=== PATIENT | female | born 1980 ===

== ENCOUNTER → 2020-04-23 12:41 | Outpatient (BNVA) | payer MEDICARE, MEDICAID, SELFPAY | PROVIDERS: PCP Pediatrics; Referring Provider Pediatrics; Visit Provider Physician Assistant | DX: E66.3 Overweight (principal); Z68.26 Body mass index [BMI] 26.0-26.9, adult; K28.9 Gastrojejunal ulcer, unspecified as acute or chronic, without hemorrhage or perforation; Z79.899 Other long term (current) drug therapy; Z98.84 Bariatric surgery status | CPT/HCPCS: 99213 ==

== ENCOUNTER → 2020-06-24 08:14 | Outpatient (BNVA) | payer MEDICARE, MEDICAID, SELFPAY | PROVIDERS: PCP Pediatrics; Referring Provider Pediatrics; Visit Provider Physician Assistant | DX: K91.2 Postsurgical malabsorption, not elsewhere classified (principal); Z90.3 Acquired absence of stomach [part of]; Z98.84 Bariatric surgery status | CPT/HCPCS: Q3014 ==

== ENCOUNTER → 2020-06-30 08:23 | Outpatient (BNVA) | payer MEDICARE, MEDICAID, SELFPAY | PROVIDERS: PCP Pediatrics; Visit Provider Dietitian, Registered | DX: Z76.89 Persons encountering health services in other specified circumstances (principal) ==

== ENCOUNTER → 2020-08-10 08:24 | Outpatient (BNVA) | payer MEDICARE, MEDICAID, SELFPAY | PROVIDERS: PCP Pediatrics; Visit Provider Dietitian, Registered ==

== ENCOUNTER → 2020-09-18 08:10 | Outpatient (BNVA) | payer MEDICARE, MEDICAID, SELFPAY | PROVIDERS: PCP Pediatrics; Visit Provider Physician Assistant | DX: Z71.3 Dietary counseling and surveillance (principal); Z98.84 Bariatric surgery status | CPT/HCPCS: Q3014 ==

== ENCOUNTER → 2020-10-07 08:16 | Outpatient (BNVA) | payer MEDICARE, MEDICAID, SELFPAY | PROVIDERS: PCP Pediatrics; Visit Provider Physician Assistant ==

== ENCOUNTER → 2020-10-08 13:02 | Outpatient (BNVA) | payer MEDICARE, MEDICAID, SELFPAY | PROVIDERS: PCP Pediatrics; Visit Provider Physician Assistant | DX: K59.00 Constipation, unspecified (principal); L57.1 Actinic reticuloid; Z98.84 Bariatric surgery status | CPT/HCPCS: 99212 ==

== ENCOUNTER → 2020-10-15 08:15 | Outpatient (BNVA) | payer MEDICARE, MEDICAID, SELFPAY | PROVIDERS: Visit Provider Physician Assistant | DX: M79.3 Panniculitis, unspecified (principal); K59.00 Constipation, unspecified; Z98.84 Bariatric surgery status | CPT/HCPCS: Q3014 ==

== ENCOUNTER → 2020-10-26 08:13 | Outpatient (BNVA) | payer MEDICARE, MEDICAID, SELFPAY | PROVIDERS: Visit Provider Surgery | DX: K91.2 Postsurgical malabsorption, not elsewhere classified (principal); Z90.3 Acquired absence of stomach [part of]; M79.3 Panniculitis, unspecified; Z98.84 Bariatric surgery status; I10 Essential (primary) hypertension | CPT/HCPCS: Q3014 ==

== ENCOUNTER 2020-11-03 05:54 | Inpatient (IN) | payer MEDICARE, MEDICAID, SELFPAY ==
[2020-10-27 08:05] LABS: MANUAL DIFF FLAG NO
[2020-10-27 08:13] LABS: Basophils Percent Auto 0.5 % (0-2); Eosinophils Absolute Auto 0.5 X10*3/uL (0.0-0.4); Eosinophils Percent Auto 6.5 % (0-4); Hemoglobin 11.9 g/dl (12.0-16.0); Imm Gran Abs Auto 0.01 X10*3/uL (0.00-0.03); Imm Gran Pct Auto 0.1 % (0.0-0.4); Lymphocytes Absolute Auto 1.9 X10*3/uL (1.2-4.9); Lymphocytes Percent Auto 25.2 % (20-40); Mean Corpuscular HGB Conc 32.2 g/dl (31.0-35.0); Mean Corpuscular Hemoglobin 27.2 pg (27.0-33.0); Mean Corpuscular Volume 84.5 fL (80-98); Mean Platelet Volume 9.5 fL (9.4-12.3); Monocytes Absolute Auto 0.5 X10*3/uL (0.1-1.2); Monocytes Percent Auto 7.2 % (2-11); Neutrophils Absolute Auto 4.5 X10*3/uL (2.0-8.3); Neutrophils Percent Auto 60.5 % (45-73); Platelet Count 332 X10*3/uL (160-400); Red Blood Count 4.38 X10*6/uL (4.20-5.50); White Blood Count 7.4 X10*3/uL (4.8-10.8)
[2020-10-27 08:15] LABS: Prothrombin Time 12.3 SEC (10.8-13.0)
[2020-10-27 08:17] LABS: Partial Thromboplastin Time 36.2 SEC (24.1-38.0)
[2020-10-27 08:20] LABS: Estimated Average Glucose 100 mg/dL; Hemoglobin A1c % 5.1 %
[2020-10-27 08:25] LABS: Alanine Aminotransferase 13 U/L (0-31); Albumin Level 4.3 g/dL (3.5-5.0); Alkaline Phosphatase 73 U/L (39-117); Anion Gap 13 (12-20); Aspartate Amino Transferase 17 U/L (5-31); Bilirubin Total 0.4 mg/dL (0.0-1.0); Blood Urea Nitrogen 15 mg/dL (9-16); C Reactive Protein 0.03 mg/dL (< or = 0.50); Calcium 9.4 mg/dL (8.4-10.2); Carbon Dioxide 24 mmol/L (22-29); Chloride 108 mmol/L (96-108); Cholesterol 127 mg/dL; Estimated Glomerular Filt Rate > 60; Glucose Random 94 mg/dL (60-115); HDL Cholesterol 55 mg/dL; LDL Cholesterol Calculated 64 mg/dl; Potassium 4.4 mmol/L (3.3-5.1); Sodium 141 mmol/L (135-145); Total Protein 6.8 g/dL (6.5-8.0); Triglycerides 43 mg/dL
[2020-10-27 08:48] LABS: Ferritin 5 ng/mL (10-250); TSH reflex Free T4 0.36 uIU/mL (0.32-4.0); Vitamin D 25-OH Total 87.7 ng/mL (>30)
[2020-10-27 09:42] LABS: Vitamin B12 875 pg/mL (200-900)
[2020-10-27 09:48] VITALS: BMI 21.9
[2020-10-28 09:31] LABS: Insulin Level Total 5.8 uIU/mL
[2020-10-28 13:37] LABS: Calcium (PTHI) 9.3 mg/dL (8.6-10.2); PTHI 30 pg/mL (14-64)
--- NOTE | 2020-10-29 14:35 | HO.ANESPROP2 ---
Documented by User: Vivien Truong 10/29/20 14:37 HPI - Anesthesia Eval Consult details Narrative: 40yo F for Panniculectomy and Brachioplasty s/p gastric bypass 2017 [facility] Active Problems Active Problems: All Active Problems (Updated 10/27/20 @ 09:47 by Maura Caruso) Overweight (BMI 25.0-29.9) (Acute) Skin laxity (Acute) Constipation (Acute) Panniculitis (Acute) H/O gastric bypass (Acute) Intestinal malabsorption following gastrectomy (Acute) Depression (Acute) Anxiety (Acute) Hypertension (Acute) Past Medical History Medical History Anastomotic ulcer S/P gastric bypass Anxiety Depression Hepatitis C Hypertension Intestinal malabsorption following gastrectomy Morbid obesity Obstructive sleep apnea Panic attacks Family History Family History Father Diabetes Mother No problems noted. Brother No problems noted. Brother No problems noted. Brother No problems noted. Sister No problems noted. Sister No problems noted. Sister No problems noted. Daughter No problems noted. Son No problems noted. Surgical History Surgical History H/O gastric bypass H/O tubal ligation History of esophagogastroduodenoscopy (EGD) Hx laparoscopic cholecystectomy Previous section Social History Social History Are you a primary interior plant caretaker to a significant other at home: No Do you presently have visiting nurse or other home services: No Alcohol intake: current Alcohol intake frequency: holidays/special occasions only Smoking Status: Former smoker Smoking Quit Date: 2013 Use of substances other than those prescribed or required for medical reasons: No Have you been hit, kicked, punched, or otherwise hurt by someone within the past year? If so, by whom?: No Advance Directives: No Advance Directives Information Provided: No Advance Directives on File: No Recently lost weight without trying: No Meds Allergies Allergy/AdvReac Type Severity Reaction Status Date / Time kiwi [KIWI] Allergy Intermediate LIP Verified 10/27/20 09:19 SWELLING, THROAT ITCHING Home Medications Medication Instructions Recorded Confirmed Last Taken Type acetaminophen 650 mg 650 mg PO Q6H PRN 04/23/20 10/27/20 11/03/20 History tablet,extended release bupropion HCl 150 mg tablet,12 hr 150 mg PO DAILY 04/23/20 10/27/20 Unknown History sustained-release lorazepam 0.5 mg tablet 0.5 mg PO DAILY PRN 04/23/20 10/27/20 Unknown History bisacodyl [Dulcolax (bisacodyl)] 10 mg HI DAILY PRN 10/27/20 10/27/20 Unknown History cyclobenzaprine 1 - 2 tab PO BID PRN 10/27/20 10/27/20 Unknown History eszopiclone [Lunesta] 1 tab PO BEDTIME PRN 10/27/20 10/27/20 Unknown History lamotrigine 1 tab PO DAILY 10/27/20 10/27/20 Unknown History Exam Exam Date and Time: October 29, 2020 1435 Height,Weight and Vital Signs: Height 5 ft 1.5 in Weight 53.524 kg Pertinent Lab Results Pertinent Lab Results: Laboratory Tests 10/27/20 10/27/20 10/27/20 07:40 07:40 07:40 WBC 7.4 RBC 4.38 Hgb 11.9 L Hct 37.0 MCV 84.5 MCH 27.2 MCHC 32.2 RDW 14.0 Plt Count 332 MPV 9.5 Immature Gran % (Auto) 0.1 Neut % (Auto) 60.5 Lymph % (Auto) 25.2 [place] % (Auto) 7.2 Eos % (Auto) 6.5 H Baso % (Auto) 0.5 Lymph # (Auto) 1.9 [place] # (Auto) 0.5 Eos # (Auto) 0.5 H Baso # (Auto) 0.0 Abs Immat Gran (auto) 0.01 Absolute Neuts (auto) 4.5 Absolute Nucleated RBC 0.000 Nucleated RBC % (auto) 0.0 PT 12.3 INR 1.0 APTT 36.2 Sodium 141 Potassium 4.4 Chloride 108 Carbon Dioxide 24 Anion Gap 13 BUN 15 Creatinine 0.73 Estim Creat Clear Calc TNP Estimated GFR > 60 Random Glucose 94 Estimat Average Glucose Hemoglobin A1c % Total Insulin Calcium 9.4 Ferritin 5 L Total Bilirubin 0.4 AST 17 ALT 13 Alkaline Phosphatase 73 C-Reactive Protein 0.03 Total Protein 6.8 Albumin 4.3 Triglycerides 43 Cholesterol 127 LDL Cholesterol, Calc 64 HDL Cholesterol 55 Vitamin B12 25-OH Vitamin D Total 87.7 TSH 0.36 PTH Intact Calcium (PTH Intact) Blood Type Antibody Screen 10/27/20 10/27/20 10/27/20 07:40 07:40 07:40 WBC RBC Hgb Hct MCV MCH MCHC RDW Plt Count MPV Immature Gran % (Auto) Neut % (Auto) Lymph % (Auto) [place] % (Auto) Eos % (Auto) Baso % (Auto) Lymph # (Auto) [place] # (Auto) Eos # (Auto) Baso # (Auto) Abs Immat Gran (auto) Absolute Neuts (auto) Absolute Nucleated RBC Nucleated RBC % (auto) PT INR APTT Sodium Potassium Chloride Carbon Dioxide Anion Gap BUN Creatinine Estim Creat Clear Calc Estimated GFR Random Glucose Estimat Average Glucose 100 Hemoglobin A1c % 5.1 Total Insulin 5.8 Calcium Ferritin Total Bilirubin AST ALT Alkaline Phosphatase C-Reactive Protein Total Protein Albumin Triglycerides Cholesterol LDL Cholesterol, Calc HDL Cholesterol Vitamin B12 875 25-OH Vitamin D Total TSH PTH Intact 30 Calcium (PTH Intact) 9.3 Blood Type Antibody Screen 10/27/20 07:40 WBC RBC Hgb Hct MCV MCH MCHC RDW Plt Count MPV Immature Gran % (Auto) Neut % (Auto) Lymph % (Auto) [place] % (Auto) Eos % (Auto) Baso % (Auto) Lymph # (Auto) [place] # (Auto) Eos # (Auto) Baso # (Auto) Abs Immat Gran (auto) Absolute Neuts (auto) Absolute Nucleated RBC Nucleated RBC % (auto) PT INR APTT Sodium Potassium Chloride Carbon Dioxide Anion Gap BUN Creatinine Estim Creat Clear Calc Estimated GFR Random Glucose Estimat Average Glucose Hemoglobin A1c % Total Insulin Calcium Ferritin Total Bilirubin AST ALT Alkaline Phosphatase C-Reactive Protein Total Protein Albumin Triglycerides Cholesterol LDL Cholesterol, Calc HDL Cholesterol Vitamin B12 25-OH Vitamin D Total TSH PTH Intact Calcium (PTH Intact) Blood Type A Positive Antibody Screen NEGATIVE Narrative Narrative: EKG 2019 SB@54 Assessment and Plan Assessment Anesthesia Assessment: Chart Reviewed Documented by User: Stefanie Quinn 11/03/20 08:14 [facility] Past Medical History Medical History Anastomotic ulcer S/P gastric bypass Anxiety Depression Hepatitis C Hypertension Intestinal malabsorption following gastrectomy Morbid obesity Obstructive sleep apnea Panic attacks Family History Family History Father Diabetes Mother No problems noted. Brother No problems noted. Brother No problems noted. Brother No problems noted. Sister No problems noted. Sister No problems noted. Sister No problems noted. Daughter No problems noted. Son No problems noted. Surgical History Surgical History H/O gastric bypass H/O tubal ligation History of esophagogastroduodenoscopy (EGD) Hx laparoscopic cholecystectomy Previous section Social History Social History Are you a primary interior plant caretaker to a significant other at home: No Do you presently have visiting nurse or other home services: No Alcohol intake: current Alcohol intake frequency: holidays/special occasions only Smoking Status: Former smoker Smoking Quit Date: 2013 Use of substances other than those prescribed or required for medical reasons: No Have you been hit, kicked, punched, or otherwise hurt by someone within the past year? If so, by whom?: No Advance Directives: No Advance Directives Information Provided: No Advance Directives on File: No Recently lost weight without trying: No Meds Allergies Allergy/AdvReac Type Severity Reaction Status Date / Time kiwi [KIWI] Allergy Intermediate LIP Verified 10/27/20 09:19 SWELLING, THROAT ITCHING Home Medications Medication Instructions Recorded Confirmed Last Taken Type acetaminophen 650 mg 650 mg PO Q6H PRN 04/23/20 10/27/20 11/03/20 History tablet,extended release bupropion HCl 150 mg tablet,12 hr 150 mg PO DAILY 04/23/20 10/27/20 Unknown History sustained-release lorazepam 0.5 mg tablet 0.5 mg PO DAILY PRN 04/23/20 10/27/20 Unknown History bisacodyl [Dulcolax (bisacodyl)] 10 mg HI DAILY PRN 10/27/20 10/27/20 Unknown History cyclobenzaprine 1 - 2 tab PO BID PRN 10/27/20 10/27/20 Unknown History eszopiclone [Lunesta] 1 tab PO BEDTIME PRN 10/27/20 10/27/20 Unknown History lamotrigine 1 tab PO DAILY 10/27/20 10/27/20 Unknown History Exam Airway Mallampati Class: II TM Dist: >3cm Neck ROM: Full
[2020-10-30 00:46] LABS: Zinc 77 mcg/dL (60-130)
[2020-10-31 09:36] LABS: Vitamin B1 37 nmol/L (8-30)
[2020-10-31 18:22] LABS: Vitamin A 31 mcg/dL (38-98)
--- NOTE | 2020-11-02 22:32 | P.HPSUR_ITS ---
Pre-Procedural Eval Section A The patient is an INPATIENT: Yes The History & Physical has been completed within 30 days and I have reviewed it.: Yes Section B Chief Complaint: paniculitis Details of Present Illness: Panniculitis and cellulitis Relevant Family History (Specify if Yes): No Relevant Social History: None Present Medications: see Short Stay Collaborative assessment Medical History: No relevant PMH History of Previous Operations: Relevant previous surgery/procedure and date(s) (lap gastric bypass) Allergies: Allergies Allergy/AdvReac Type Severity Reaction Status Date / Time kiwi [KIWI] Allergy Intermediate LIP Verified 10/27/20 09:19 SWELLING, THROAT ITCHING Review of Systems Sugical H&P ROS: Negative: Constitution, Cardiovascular, Respiratory, Margo rological, Psychiatric, Hem-Onc, Allergic/Immunologic, Gastrointestinal, Genitourinary, Musculoskeletal, Integumentary, Endocrine and Eyes/Ears/Nose/Throat Exam Surgical H&P Exam: Normal: HEENT, Normal: Heart, Normal: Lungs, Normal: Extremities, Normal: Abdomen, Normal: Skin and Normal: Neurological Plan Diagnosis/Plan: Unchanged (Panniculectomy and bilateral brachioplasty. Risks and complications were discussed) I have reviewed the history and physical and performed a pertinent physical examination on my patient. No changes have occurred unless specified.
[2020-11-03] VITALS (13 sets, daily range): BP systolic 117–146; BP diastolic 62–74; PULSE 55–92; RESP 14–18; TEMP 35.8–36.9; O2SAT 99–100
[2020-11-03 06:50] LABS: COVID-19 Test Negative (Negative); IDNOW Serial# 9DD0AD1C
[2020-11-03] MEDS: Lactated Ringers 1,000 ML 100 ML IVCONT ×2 (07:01→16:58)
--- NOTE | 2020-11-03 12:00 | PM.OP ---
Brief Operative Note Date of Service: 11/03/20 Pre-op diagnosis: Panniculitis and bilateral arm celulitis Post-op diagnosis: same Procedure: PROCEDURE: Panniculectomy with umbilical transposition and omental flap, bilateral brachioplasty INDICATION: This a 40 year old female who underwent laparoscopic July-en-Y gastric bypass on 08/10/2017. She had an excellent result achieving a BMI of 22 kg/m2 with a total weight loss of 141.6lbs, or 54.5% of her TBWL. As a result, she has developed panniculitis which has not resolved despite continuous use of clotrimazole ointment as well as skin irritation and intetrigo in both upper arms. On exam she has extreme skin laxity due to massive weight loss and age with the abdominal pannus completely hiding the genitalia and the upper arms 6 cm below the level of the triceps. Panniculectomy with bilateral brachioplasty was recommended. We discussed the two options for the panniculectomy of using a combined vertical and horizontal incisions or just a horizontal (bikini) incision. It was my recommendation to do only horizontal incision based on her body habitus and skin laxity. The patient agreed with this. Risks and complications were discussed with the patient including bleeding, infection, umbilical loss, flap necrosis, asymmetry, dehiscence, seroma, VTE. The patient understood the risks and was in agreement to proceed with surgery. PROCEDURE: The incisions were appropriately marked at the preop area with the patient standing and laying down. After induction of general anesthesia a Fair catheter and pneumatic compression devices were placed. The patient was prepped and draped in the usual sterile manner and the incisions were marked again and confirmed. In similar fashion both upper arms were also marked when the patient was standing. The upper arms were performed first. The skin was infiltrated with lidocaine and epinephrine. Skin was excised with the #15 blade. Cautery was used to separate the skin from subcutaneous tissues. Careful attention was paid to make sure that the plain of excision was superficial as close to the skin as possible. The right upper arm skin was 25 cm x 5 cm and the left 25 cm x 5 cm. Skin was closed in two layers using interrupted 3.0 Monocryl sutures for the dermis and 4.0 subcuticular Monocryl suture for the skin. The skin was infiltrated with lidocaine and epinephrine. The #10 blade scalpel was used for the large incisions and the #15 blade scalpel for the umbilicus. Cautery was used to divide the subcutaneous tissues until the fascia was identified. Then I used the Thunderbeat (Olympus) to separate the pannus from the fascia. The inferior incision was made initially and I mobilized the flap for a several centimeters cephalad to the umbilicus. The umbilicus was incised circumferentially and detached from the surrounding tissues all the way to the fascia while its stalk was preserved. With the patient in reflex position I confirmed that the skin flaps were appropriate and would allow for the tissues to come together with reasonable tension. At that point a horizontal incision was made 4 cm above the umbilicus. #10 blade was used for the skin, cautery for the dermis and the Thunderbeat for the remaining tissues. An omental flap was raised from the upper flap in order to fill the space under the skin and support the closure of the two flaps. In addition the inferior flap was mobilized caudally for a few centimeters to create a space for the omental flap as well as relieve tension from the closure. A circumferential incision was made at the area where the umbilicus would be re-implanted. The umbilicus was appropriately oriented and was delivered through the defect and was secured in place with a Orange. No bleeding was noted anywhere. One BENITO drain was placed from the right corner of the horizontal incision across the wound and was secured in place with a silk suture. The omental flap was secured under the inferior flap with several interrupted 3.0 Monocryl sutures. The two flaps were brought together and were attached at the midline of the horizontal incision with a #3.0 Monocryl suture. At that point the umbilicus was properly oriented and was re-approximated to the skin with 8 interrupted 3.0 Monocryl sutures. In a similar fashion the skin flaps were re-approximated with multiple 3.0 Monocryl sutures. The skin was closed in all incisions and umbilicus with 4.0 Monocryl sutures. Steri-strips, xeroform gauzes and gauzes were used to cover the incisions. An abdominal binder was also placed. The was awaken and was transferred to the recover room in a stable condition. I was present and performed the entire procedure. Ms. Villedason was the back office medical assistant. Loki Pappas MD, PhD, FACS Surgeon: Dileep Pappas MD Surgeon: Dileep Pappas MD Anesthesia: GETA and local Bank Worker: Madelyn Alonso Estimated blood loss (mL): 10 IV fluids (mL): 1,500 Urine output (mL): 500 Pathology: other (1) abdominal pannus, 2) left upper arm, 3) right upper arm) Condition: stable Disposition: PACU
--- NOTE | 2020-11-03 12:04 | PM.PNGS ---
Subjective Subjective Date of Service: 11/04/20 Interval history: Patient has mild incisional pain. Was at bedrest overnight. Tolerating liquid diet. All dressings were taken down. All incisions were intact without erythema, or drainage. Skin flaps and umbilicus were viable. Physical Exam Vital Signs: Vital Signs: Last Vital Signs Temp 98.4 F 11/03/20 06:32 Pulse 70 11/03/20 06:32 Resp 16 11/03/20 06:32 BP 117/62 11/03/20 06:32 Pulse Ox 100 11/03/20 06:32 Body Mass Index 21.9 GI: Inspection: Yes incision (clean, dry and intact. Umbilicus was viable) and Yes other (BENITO drain with serosanguinous fluid) Extrem: Right lower extremity: normal to inspection (no calf tenderness) Left lower extremity: normal to inspection (no calf tenderness) Progress Note: A&P Assessment and plan (1) Panniculitis: Status: Acute (2) Skin laxity: Status: Acute (3) H/O gastric bypass: Problem details: DOS 08/10/17, Dr. Pappas Status: Acute (4) S/P panniculectomy: Status: Acute Assessment and Plan: 40 year old female was admitted on 11/03/2020 with panniculitis. Problem 1: s/p bilateral brachioplasty, panniculectomy with umbilical transposition and bilateral subcutaneous fat flaps Status: Doing well Plan: Check am labs, If OK, ambulate, d/c Fair will continue phase 1 bariatric diet and discharge later today. Fall Risk Details Current Medications: Current Medications Generic Name Dose Route Start Last Admin Trade Name Freq PRN Reason Stop Dose Admin Fentanyl 50 mcg 11/03/20 08:15 Fentanyl Citrate/Pf 100 Mcg/2 Ml Vial IVPUSH Q5M PRN Pain, Severe (Pain Scale 7-10) Lactated Ringer's 1,000 mls @ 80 mls/hr 11/02/20 22:45 Lr IVCONT .[id number] MARIO Lactated Ringer's 1,000 mls @ 100 mls/hr 11/03/20 05:30 11/03/20 07:01 Lr IVCONT 100 mls/hr .Q10H MARIO Administration Ondansetron HCl 4 mg 11/03/20 08:15 Ondansetron Hcl 4 Mg/2 Ml Vial IVPUSH ONCE PRN Nausea and Vomiting Time Spent With Patient Time: Total time spent is greater than 50% in coordination of care (as documented) at patient's floor/unit and/or counseling patient: Time with patient: less than 15 minutes
--- NOTE | 2020-11-03 12:26 | P.DS_ITS ---
DS: Providers Provider Date of Service: 11/04/20 Date of admission: 11/03/20 05:54 Primary care physician: Aline Healy MD DS: Diagnosis Discharge Diagnosis (1) Panniculitis: Status: Acute (2) Skin laxity: Status: Acute (3) H/O gastric bypass: Status: Acute Problem details: DOS 08/10/17, Dr. Pappas (4) S/P panniculectomy: Status: Acute DS: Medications Discharge Medications Home Medications: Home Medications Medication Instructions Recorded Confirmed acetaminophen 650 mg 650 mg PO Q6H PRN 04/23/20 10/27/20 tablet,extended release bupropion HCl 150 mg tablet,12 hr 150 mg PO DAILY 04/23/20 10/27/20 sustained-release lorazepam 0.5 mg tablet 0.5 mg PO DAILY PRN 04/23/20 10/27/20 bisacodyl [Dulcolax (bisacodyl)] 10 mg [place] DAILY PRN 10/27/20 10/27/20 cyclobenzaprine 1 - 2 tab PO BID PRN 10/27/20 10/27/20 eszopiclone [Lunesta] 1 tab PO BEDTIME PRN 10/27/20 10/27/20 lamotrigine 1 tab PO DAILY 10/27/20 10/27/20 Previous Rx's Medication Instructions Recorded docusate sodium 100 mg capsule 100 mg PO BID #60 cap 10/08/20 clotrimazole 1 % topical cream 1 appl TOPICAL BID #45 g 10/15/20 inulin 2 gram chewable tablet 2 g PO DAILY #30 tab 10/15/20 bismuth tribrom-petrolatum,wh 1 X #200 ea 10/26/20 8 bandage cephalexin 500 mg capsule 500 mg PO Q12H #30 cap 10/26/20 ondansetron HCl 4 mg tablet 4 mg PO BID #20 tab 10/26/20 iron,carbonyl 65 mg-vitamin C 125 1 tab PO DAILY #30 tab 11/01/20 mg tablet,delayed release vitamin A palmitate 10,000 unit 10,000 unit PO .COMPLEX #30 cap 11/01/20 capsule DS: Summary Time Spent with Patient Time attestation: DISCHARGE SUMMARY ADMITTING DIAGNOSIS: panniculitis, s/p lap RNYGBP. DISCHARGE DIAGNOSIS: The same. PAST SURGICAL HISTORY: Lap RNYGBP July 2017 PROCEDURE: Panniculectomy. HISTORY OF PRESENT ILLNESS: The patient is a 40 year-old woman with a BMI of 21.9 kg/m2 and associated co- morbidities as described previous. The patient had a laparoscopic RNYGBP July 2017 and has lost a total of 141.6 lbs, or 54.5 % of her initial weight and her BMI reduced to 21.9 kg/m2. As a result of the massive weight loss she developed a large abdominal pannus and persistent panniculitis recalcitrant to medical treatment. The patient was electively scheduled for panniculectomy. Risks and complications of the surgery were discussed with the patient in advance, particularly the possibility of , pulmonary embolism, skin necrosis, loss of umbilicus, flap necrosis, wound dehiscence, flap asymmetry, bleeding requiring transfusion. The patient understood all the risks and was in agreement with the surgical plan. On postoperative day #1 the patient was started on Phase 3 bariatric diet. The Fair was discontinued. She was allowed to ambulate and she had no dizziness. During the first day, the patient did fairly well, having some incisional pain, but able to ambulate adequately and to tolerate liquids well. All dressings were taken down and the all incisions were inspected. There was no evidence of infection or bleeding or significant discharge. All flaps and umbilicus were viable and there was no dehiscence. BENITO drains had minimal output with serosanguinous fluid. Since the patient is doing well, we decided that the patient was ready to be discharged. The patient was given instructions to follow-up with me next week and to call my office for any fever over 101, persistent abdominal pain, nausea, vomiting, and symptoms of DVT such as calf tenderness, or leg swelling, or pulmonary embolism such as chest pain or shortness of breath. The patient was also instructed to drink 40-60 ounces of liquids per day using the 1-ounce cups and start on 3 Pure protein shakes per day. The patient was given prescription for Tylenol for pain, Zofran prn for nausea and a 10-day course of Keflex twice a day. The patient was encouraged to ambulate and use the incentive spirometer. However it was strongly recommended to do so with assistance and avoid any abdominal straining for at least one month. The patient was allowed only to do sponge baths, and encouraged to use the recliner at home and not the bed. All of these instructions were given to the patient personally. All questions were answered and the patient understood all instructions. The instructions were given to the patient in print as well. Total time spent providing and/or coordinating discharge services: 15 Discharge coordination time: Less than 30 minutes Physical Exam Vital Signs: Vital Signs: Last Vital Signs Temp 98.4 F 11/03/20 06:32 Pulse 70 11/03/20 06:32 Resp 16 11/03/20 06:32 BP 117/62 11/03/20 06:32 Pulse Ox 100 11/03/20 06:32 Body Mass Index 21.9 DS: Data Data Completed and Pending Pending studies at discharge: Pending at discharge 11/03/20 10:39 Surgical [PTH] Routine Labs on day of discharge: Laboratory Results - last 24 hr 11/03/20 06:06 COVID-19 ([facility]) Negative COVID-19 Clin Com See Note Discharge Plan Discharge Anticipated Discharge Date/Time: 11/04/20 12:22 Patient Disposition: Home Health Service Discharge Diagnosis: s/p panniculectomy Referrals: [facility] [Outside] - 1 Week Aline Healy MD [Primary Care Provider] - 1 Week Discharge Medications: Continued vitamin A palmitate 10,000 unit capsule 10,000 unit PO .COMPLEX Qty: 30 RF: 1 Vitron-C 65 mg iron- 125 mg tablet,delayed release (DR/EC) 1 tab PO DAILY Qty: 30 RF: 2 lamotrigine 25 mg tablet 1 tab PO DAILY RF: 0 cyclobenzaprine 5 mg tablet 1 - 2 tab PO BID PRN (Reason: Muscle Pain) RF: 0 eszopiclone [Lunesta] 1 mg tablet 1 tab PO BEDTIME PRN (Reason: Sleep) RF: 0 lorazepam 0.5 mg tablet 0.5 mg PO DAILY PRN (Reason: Anxiety) RF: 0 acetaminophen 650 mg tablet extended release 650 mg PO Q6H PRN (Reason: Pain) RF: 0 bupropion HCl 150 mg tablet sustained-release 12 hr 150 mg PO DAILY RF: 0 Fiber Gummies 2 gram tablet,chewable 2 g PO DAILY Qty: 30 RF: 11 clotrimazole [Athlete's Foot (clotrimazole)] 1 % cream 1 appl topical BID Qty: 45 RF: 2 cephalexin 500 mg capsule 500 mg PO Q12H Qty: 30 RF: 2 ondansetron HCl [Zofran] 4 mg tablet 4 mg PO BID Qty: 20 RF: 0 (DME) Xeroform Petrolatum Dressing 1 X 8 bandage See Rx Instructions .ROUTE .MEDSUPPLY Qty: 200 RF: 0 docusate sodium [Dulcolax Stool Softener (dss)] 100 mg capsule 100 mg PO BID Qty: 60 RF: 3 Discontinued bisacodyl [Dulcolax (bisacodyl)] 10 mg suppository 10 mg [place] DAILY PRN (Reason: Constipation) RF: 0 Discharge Orders: Discharge Order (Routine); Ordered 11/04/20 Ordered By: Dileep Pappas Diet: regular diet Activity on Discharge: Rest with bed elevated Stand Alone Forms: Patient Portal Discharge page Activity Restrictions/Additional Instructions: 1) Record drain output for all 24 hour periods on drain output sheet. Bring sheet at the next office visit 2) Start Keflex antibiotic 3) No showers. Only sponge baths 4) Avoid any tension on the abdomen and always have help getting up. Use your arms to push off from chair/bed. 5) Take 1 tab of Colace and one tablespoon of Metamucil daily 6) Diet: 4 protein shakes, or 3 shakes and one bar, or 3 shakes and one meal (2oz meat and 2oz salad) 7) Wear binder at all times 8) Change dressings daily and send pictures to Dr. Pappas. Replace loose steri-strips and xeroform gauze along the incisions and umbilicus. 9) Supplies needed: ABD pads, 4x4 dressings, xeroform gauze, 1/2'' steri-strips, paper tape. You will need to use several of the above supplies on a daily basis. Care Plan Goals: no further panniculitis Health Concerns: panniculitis Plan of Treatment: see discharge instructions Assessment: POD # 1, stable Discharge Date/Time: 11/04/20 12:18
[2020-11-03] MEDS: ceFAZolin Sodium/Dextrose,Iso 2 GM/50 ML PIGGYBACK IV (15:30)
[2020-11-03] MEDS: ondansetron HCL 4 MG/2 ML VIAL IVPUSH (16:57)
[2020-11-03] MEDS: Cyclobenzaprine HCl 5 MG TABLET PO (21:04)
[2020-11-03] MEDS: 0.9 % Sodium Chloride Flush 3 ML SYRINGE IVFLUSH (21:04)
[2020-11-04] MEDS: Lactated Ringers 1,000 ML 100 ML IVCONT ×2 (01:09→10:08)
[2020-11-04 03:00] VITALS: BP 118/56; PULSE 63; RESP 16; TEMP 36.9; O2SAT 98
[2020-11-04 05:01] LABS: MANUAL DIFF FLAG NO
[2020-11-04 05:08] LABS: Basophils Percent Auto 0.3 % (0-2); Eosinophils Absolute Auto 0.3 X10*3/uL (0.0-0.4); Eosinophils Percent Auto 2.8 % (0-4); Hematocrit 29.6 % (37-47); Hemoglobin 9.6 g/dl (12.0-16.0); Imm Gran Abs Auto 0.04 X10*3/uL (0.00-0.03); Imm Gran Pct Auto 0.3 % (0.0-0.4); Lymphocytes Absolute Auto 2.7 X10*3/uL (1.2-4.9); Lymphocytes Percent Auto 22.5 % (20-40); Mean Corpuscular HGB Conc 32.4 g/dl (31.0-35.0); Mean Corpuscular Hemoglobin 27.7 pg (27.0-33.0); Mean Corpuscular Volume 85.5 fL (80-98); Mean Platelet Volume 10.4 fL (9.4-12.3); Monocytes Absolute Auto 0.9 X10*3/uL (0.1-1.2); Monocytes Percent Auto 7.3 % (2-11); Neutrophils Absolute Auto 7.9 X10*3/uL (2.0-8.3); Neutrophils Percent Auto 66.8 % (45-73); Platelet Count 297 X10*3/uL (160-400); Red Blood Count 3.46 X10*6/uL (4.20-5.50); Red Cell Distribution Width 14.3 % (11.0-16.0); White Blood Count 11.8 X10*3/uL (4.8-10.8)
[2020-11-04 05:49] LABS: Anion Gap 12 (12-20); Blood Urea Nitrogen 10 mg/dL (9-16); Carbon Dioxide 23 mmol/L (22-29); Chloride 106 mmol/L (96-108); Creatinine Clr Calc Pharmacy 90.6; Estimated Glomerular Filt Rate > 60; Glucose Random 72 mg/dL (60-115); Potassium 4.3 mmol/L (3.3-5.1); Sodium 137 mmol/L (135-145)
[2020-11-04 07:00] VITALS: BP 138/60; PULSE 66; RESP 15; TEMP 36.3; O2SAT 100
[2020-11-04] MEDS: Docusate Sodium 100 MG CAPSULE PO (09:26)
[2020-11-04] MEDS: lamoTRIgine 25 MG TABLET PO (09:26)
--- NOTE | 2020-11-04 10:02 | MHC.CM.PN ---
Addendum entered by Flavia Burgos 11/04/20 10:10: CORRECTION: PATIENT TO RETURN HOME WITH A REFERRAL TO [facility] Original Note: PATIENT LIVES WITH HER ADULT CHILDREN. SHE IS INDEPENDENT WITH HER ADLS. NO DME OR VNA SHE ANTICIPATES LEAVING TODAY WITH NO NEED FOR SERVICES. SHE REPORTS THAT SHE HAS A RIDE HOME. CASE MANAGEMENT AVAILABLE OR ANY DISCHARGE NEEDS THAT MAY ARISE. IMM 11/04 IN CHART.
--- NOTE | 2020-11-04 10:44 | HO.POSTANES ---
Post Anesthesia Evaluation Post Anesthesia Evaluation Vital Signs: Vital Signs Temp Pulse Resp BP Pulse Ox 11/04/20 07:00 97.3 F 66 15 138/60 100 11/04/20 03:00 98.4 F 63 16 118/56 L 98 11/03/20 23:00 97.8 F 69 16 133/70 100 Anesthesia: General Endotracheal-GETA Mental Status: Awake Pain Control: Satisfactory Nausea/Vomiting: None Hydration: Adequate Anesthesia-Related Issues: No Anes. Related Issues
[2020-11-04 11:00] VITALS: BP 134/77; PULSE 75; RESP 18; TEMP 36.1; O2SAT 99
--- NOTE | 2020-11-04 11:01 | W.MHC.F2F ---
Service Date Service Date: 11/04/20 Reasons for Services Homebound: Leaving the home is medically contraindicated at this time without the asist of a device and/or another person due th the listed conditions above and below. Certification: Based on the above findings, I certify that this patient is confined to the home and needs intermittent residential care, for BENITO drain and incision care while she is at bedrest and continues to need occupational therapy. The patient is under my care, and I have initiated the establishment of the plan of care. The patient will be followed by a physician who will periodically review the plan of care.
== END 2020-11-04 12:18 | disposition home health service (06) | DRG 571 ==
LOC: HO.SSSA 12:25 → HO.S3 15:22
PROVIDERS: Physician Assistant; Admitting Provider Surgery; PCP Pediatrics; Visit Provider Surgery
PROC: 0JB80ZZ Excision of Abdomen Subcutaneous Tissue and Fascia, Open Approach (ICD-10-PCS; CPT 15830; principal; 2020-11-03 07:30)
PROC: 0JB80ZZ Excision of Abdomen Subcutaneous Tissue and Fascia, Open Approach (ICD-10-PCS; CPT 15836; 2020-11-03 07:30)
DX: M79.3 Panniculitis, unspecified (principal); L03.114 Cellulitis of left upper limb; L03.113 Cellulitis of right upper limb; L98.7 Excessive and redundant skin and subcutaneous tissue; Z20.822 Contact with and (suspected) exposure to COVID-19; Z98.84 Bariatric surgery status; Z79.4 Long term (current) use of insulin; Z79.899 Other long term (current) drug therapy
CPT/HCPCS: 36415; 80048; 80053; 80061; 82306; 82607; 82728; 83036; 83525; 83970; 84425; 84443; 84590; 84630; 85025; 85610; 85730; 86140; 86850; 86900; 87635; 88304; 99024; C1758; J0131; J0690; J1100; J1170; J2250; J2370; J2405; J3010

== ENCOUNTER → 2020-11-11 07:57 | Outpatient (BNVA) | payer MEDICARE, MEDICAID, SELFPAY | PROVIDERS: PCP Pediatrics; Visit Provider Surgery | DX: Z98.890 Other specified postprocedural states (principal) | CPT/HCPCS: 99212 ==

== ENCOUNTER → 2020-11-27 14:50 | Outpatient (BNVA) | payer MEDICARE, MEDICAID, SELFPAY | PROVIDERS: PCP Pediatrics; Referring Provider Pediatrics; Visit Provider Physician Assistant | DX: Z98.890 Other specified postprocedural states (principal); Z98.84 Bariatric surgery status | CPT/HCPCS: 99212 ==

== ENCOUNTER 2021-02-02 10:36 | Outpatient (REF) | payer MEDICARE, MEDICAID, SELFPAY ==
[2021-02-02 11:05] LABS: MANUAL DIFF FLAG NO
[2021-02-02 11:11] LABS: Basophils Percent Auto 0.8 % (0-2); Eosinophils Absolute Auto 0.4 X10*3/uL (0.0-0.4); Eosinophils Percent Auto 7.9 % (0-4); Hematocrit 35.9 % (37-47); Hemoglobin 11.5 g/dl (12.0-16.0); Imm Gran Abs Auto 0.02 X10*3/uL (0.00-0.03); Imm Gran Pct Auto 0.4 % (0.0-0.4); Lymphocytes Absolute Auto 1.3 X10*3/uL (1.2-4.9); Lymphocytes Percent Auto 26.4 % (20-40); Mean Corpuscular Hemoglobin 27.6 pg (27.0-33.0); Mean Corpuscular Volume 86.3 fL (80-98); Mean Platelet Volume 9.6 fL (9.4-12.3); Monocytes Absolute Auto 0.4 X10*3/uL (0.1-1.2); Monocytes Percent Auto 7.9 % (2-11); Neutrophils Absolute Auto 2.7 X10*3/uL (2.0-8.3); Neutrophils Percent Auto 56.6 % (45-73); Platelet Count 319 X10*3/uL (160-400); Red Blood Count 4.16 X10*6/uL (4.20-5.50); Red Cell Distribution Width 15.1 % (11.0-16.0); White Blood Count 4.8 X10*3/uL (4.8-10.8)
[2021-02-02 11:29] LABS: Alanine Aminotransferase 11 U/L (0-31); Albumin Level 4.1 g/dL (3.5-5.0); Alkaline Phosphatase 69 U/L (39-117); Anion Gap 10 (12-20); Aspartate Amino Transferase 18 U/L (5-31); Bilirubin Direct 0.2 mg/dL (0.0-0.5); Bilirubin Total 0.5 mg/dL (0.0-1.0); Blood Urea Nitrogen 11 mg/dL (9-16); Calcium 9.3 mg/dL (8.4-10.2); Carbon Dioxide 26 mmol/L (22-29); Chloride 108 mmol/L (96-108); Estimated Glomerular Filt Rate > 60; Glucose Random 87 mg/dL (60-115); Potassium 4.4 mmol/L (3.3-5.1); Sodium 140 mmol/L (135-145); Total Protein 6.6 g/dL (6.5-8.0)
[2021-02-02 11:49] LABS: TSH reflex Free T4 0.42 uIU/mL (0.32-4.0); Vitamin D 25-OH Total 75.4 ng/mL (>30)
[2021-02-03 08:15] LABS: Syphilis Screen Nonreactive (Nonreactive)
[2021-02-03 08:17] LABS: HIV AB/AG Nonreactive (Nonreactive); HIV Num 1 0.08 S/CO (0.00-0.99)
[2021-02-03 08:22] LABS: Hepatitis A Antibody IgM 0.59 Index (0-0.79); ~Hepatitis A Antibody IgM Nonreactive (Nonreactive)
[2021-02-03 16:03] LABS: Vitamin B12 1000 pg/mL (200-900)
[2021-02-05 11:37] LABS: HCV Log PCR <1.18 NOT DETECTED Log IU/mL (NOT DETECTED); HepC Viral Load <15 NOT DETECTED IU/mL (NOT DETECTED)
== END 2021-02-02 10:37 | disposition home or self-care (01) ==
LOC: HO.LAB 10:36
PROVIDERS: PCP Pediatrics; Visit Provider Pediatrics
DX: Z11.4 Encounter for screening for human immunodeficiency virus [HIV] (principal); B19.20 Unspecified viral hepatitis C without hepatic coma
CPT/HCPCS: 36415; 80048; 80076; 82306; 82607; 84443; 85025; 86709; 86780; 87389; 87522

== ENCOUNTER 2021-04-12 08:20 | Outpatient (REF) | payer MEDICARE, MEDICAID, SELFPAY ==
--- NOTE | ~2021-04-12 | MM_ITS ---
EXAMINATION: MM SCREENING DIGITAL BREAST TOMOSYNTHESIS, BILATERAL CLINICAL INFORMATION: Screening. Asymptomatic. The lifetime risk of breast cancer based on the Tyrer-Cuzick Model is 12%. COMPARISON: Mammography: 12/18/2018, 12/06/2018 (baseline) TECHNIQUE: Digital breast tomosynthesis is performed in both the craniocaudal and mediolateral oblique views along with computer-aided detection (CAD). Synthesized 2D images are generated from the tomosynthesis. FINDINGS: There are scattered areas of fibroglandular density (ACR BI-RADS breast composition Category b). There are no significant masses, abnormal calcifications, or other abnormalities. Parenchymal pattern is similar to baseline exam. Again, there are dermal calcifications bilateral posterior medial breasts. Low left axillary tail node again demonstrated as an incidental finding. MM/MM tomosynthesis screening BI IMPRESSION: No mammographic evidence of malignancy. ASSESSMENT: BI-RADS 2: Benign RECOMMENDATION: Routine annual mammography screening. This patient's information was entered into a reminder system with a target due date for their next mammogram.
== END 2021-04-12 08:21 | disposition home or self-care (01) ==
LOC: HO.MAMMO 08:20
PROVIDERS: PCP Pediatrics; Visit Provider Pediatrics
DX: Z12.31 Encounter for screening mammogram for malignant neoplasm of breast (principal)
CPT/HCPCS: 77063; 77067

== ENCOUNTER 2021-07-29 08:35 | Outpatient (REF) | payer MEDICARE, MEDICAID, SELFPAY ==
[2021-07-29 10:05] LABS: COVID-19 Test Negative (Negative); IDNOW Serial# 16C4AD1C
== END 2021-07-29 08:36 | disposition home or self-care (01) ==
LOC: HO.LAB 08:35
PROVIDERS: Visit Provider Internal Medicine
DX: Z20.822 Contact with and (suspected) exposure to COVID-19 (principal)
CPT/HCPCS: 87635; C9803

== ENCOUNTER → 2022-08-16 11:21 | Outpatient (BNVA) | payer MEDICARE, MEDICAID, SELFPAY | PROVIDERS: PCP Pediatrics; Visit Provider Physician Assistant Surgical | DX: L98.7 Excessive and redundant skin and subcutaneous tissue (principal); Z98.84 Bariatric surgery status | CPT/HCPCS: 99212 ==

== ENCOUNTER 2023-07-25 16:21 | Outpatient (REF) | payer MEDICARE, MEDICAID, SELFPAY ==
[2023-07-26 19:23] LABS: C. trachomatis RNA TMA NOT DETECTED (NOT DETECTED); N. gonorrhoeae RNA TMA NOT DETECTED (NOT DETECTED)
== END 2023-07-25 16:22 | disposition home or self-care (01) ==
LOC: HO.CHCLNP 16:21
PROVIDERS: Visit Provider Family Medicine
DX: N75.0 Cyst of Bartholin's gland (principal); Z20.2 Contact with and (suspected) exposure to infections with a predominantly sexual mode of transmission
CPT/HCPCS: 36415; 81513; 87491; 87591

== ENCOUNTER 2023-07-27 08:22 | Outpatient (REF) | payer MEDICARE, MEDICAID, SELFPAY ==
[2023-07-28 08:04] LABS: HIV AB/AG Nonreactive (Nonreactive); HIV Num 1 0.06 S/CO (0.00-0.99); ~HepC Num1 9.72 S/CO (0.00-0.79); ~Hepatitis C Antibody Reactive (Nonreactive)
[2023-07-28 08:20] LABS: Syphilis Screen Nonreactive (Nonreactive)
[2023-08-03 07:38] LABS: HCV Log PCR <1.18 NOT DETECTED Log IU/mL (NOT DETECTED); HepC Viral Load <15 NOT DETECTED IU/mL (NOT DETECTED)
== END 2023-07-27 08:23 | disposition home or self-care (01) ==
LOC: HO.CHCLDS 08:22
PROVIDERS: Visit Provider Family Medicine
DX: Z11.3 Encounter for screening for infections with a predominantly sexual mode of transmission (principal)
CPT/HCPCS: 36415; 86780; 86803; 87389; 87522

== ENCOUNTER 2023-08-12 09:33 | Emergency (ER) | payer MEDICARE, MEDICAID, SELFPAY ==
[2023-08-12 09:36] VITALS: BP 155/79; PULSE 73; RESP 18; TEMP 37.2; O2SAT 100; BMI 25.5
--- NOTE | 2023-08-12 10:01 | ED.SKABFB ---
HPI - Skin/Abscess/Foreign Bdy General Chief complaint: Skin/Abscess/Foreign Body Stated complaint: not feeling well?? Time Seen by Provider: 08/12/23 09:41 Source: patient and RN notes reviewed Mode of arrival: ambulatory Limitations: no limitations History of Present Illness HPI narrative: This is a 43-year-old female presenting to the emergency department with complaints of genital pain and swelling x3 weeks. She states that she saw her primary care physician and was started on Bactrim, Keflex, and Flagyl which she completed the course however has not had any symptomatic improvement. She states that she has been performing Sitz baths without any relief. Denies history of similar symptoms in the past. She also had STI testing at her outpatient office which were all negative. She otherwise is feeling well. No current fevers, chills, chest pain, shortness of breath, abdominal pain, nausea, vomiting or diarrhea. No other complaints or concerns at this time. MD complaint: abscess/boil Onset (ago): week(s) Quality: stabbing and aching Pain Consistency: constant Relieving factors: none Exacerbating factors: none Context: none Associated symptoms: denies other symptoms Treatments prior to arrival: none Related Data Home Medications Medication Instructions Recorded Confirmed bupropion HCl 150 mg tablet,12 hr 150 mg PO DAILY 04/23/20 08/16/22 sustained-release lorazepam 0.5 mg tablet 0.5 mg PO DAILY PRN Anxiety 04/23/20 08/16/22 eszopiclone 1 mg tablet (Lunesta) 1 tab PO BEDTIME PRN Sleep 10/27/20 08/16/22 Previous Rx's Medication Instructions Recorded clotrimazole 1 % topical cream 1 appl topical BID #45 grams 08/16/22 acetaminophen 500 mg tablet 1,000 mg (2 x 500 mg) PO Q6H PRN 08/12/23 (Tylenol Extra Strength) pain #30 tabs amoxicillin 875 mg-potassium 1 tab PO BID 7 days #14 tabs 08/12/23 clavulanate 125 mg tablet doxycycline hyclate 100 mg capsule 100 mg PO BID 7 days #14 caps 08/12/23 oxycodone 5 mg tablet 5 mg PO Q6H PRN pain #5 tabs 08/12/23 Allergies Allergy/AdvReac Type Severity Reaction Status Date / Time kiwi [KIWI] Allergy Intermediate LIP Verified 08/12/23 09:39 SWELLING, THROAT ITCHING Review of Systems Review of Systems: Yes all other systems are reviewed and are negative Constitutional: Constitutional: Reports as per [facility] Past Medical History Attestation statement: The following information was validated with the patient. Medical History Panic attacks Hepatitis C Intestinal malabsorption following gastrectomy Anastomotic ulcer S/P gastric bypass Morbid obesity Depression Anxiety Obstructive sleep apnea Hypertension Surgical History S/P panniculectomy History of esophagogastroduodenoscopy (EGD) H/O gastric bypass Hx laparoscopic cholecystectomy H/O tubal ligation Previous section Family History Family History Father Diabetes Mother No problems noted. Brother No problems noted. Brother No problems noted. Brother No problems noted. Sister No problems noted. Sister No problems noted. Sister No problems noted. Daughter No problems noted. Son No problems noted. Social History Social History Are you a primary medicare nurse to a significant other at home: No Do you presently have visiting nurse or other home services: No Alcohol intake: current Alcohol intake frequency: holidays/special occasions only Smoked in Last 30 Days: Yes Use of substances other than those prescribed or required for medical reasons: No Advance Directives: No Advance Directives Information Provided: No service: No Current occupational status: disabled Physical Exam Vital Signs: Vital Signs: Last Vital Signs Temp 98.9 F 08/12/23 09:36 Pulse 73 08/12/23 09:36 Resp 18 08/12/23 09:36 BP 155/79 H 08/12/23 09:36 Pulse Ox 100 08/12/23 09:36 O2 Del Method Room Air 08/12/23 09:36 BMI result Body Mass Index 25.5 Const: General: cooperative, comfortable and no acute distress Orientation/consciousness: patient oriented x3 Limitations: no limitations HEENT: Head: Yes normal to inspection, Yes normocephalic and Yes atraumatic Ears: hearing grossly normal bilaterally General nose exam: Normal external nose present Face and sinus: Yes normal facial exam Mouth: Normal oral and palatal mucosa present, oropharynx normal and moist mucous membranes Throat: Yes posterior oropharynx normal Eyes: General: appearance normal, both eyes and all related structures Eyelids: Yes eyelids normal Conjunctivae: conjunctivae normal Sclerae: sclerae normal Pupils: Equal, round and reactive pupils present EOM: EOMs intact bilaterally Neck: Neck: Yes normal visual inspection, Yes full ROM and Yes no lymphadenopathy Lymphatic: no lymphadenopathy noted Chest: Chest palpation & inspection: normal inspection of the chest Resp: Effort & Inspection: normal respiratory effort and able to speak in complete sentences Auscultation: clear to auscultation bilaterally, no crackles, no rales, no rhonchi and no wheezes Cardio: Rate: regular rate Rhythm: regular rhythm Heart sounds: S1 normal heart sound present and S2 normal heart sound present GI: Inspection: Yes normal to inspection : Other: Inferior aspect of the vulva there is a asymmetric protrusion with exquisite tenderness palpation with induration and fluctuance. No surrounding erythema, edema or warmth. Skin: General skin exam: no rashes or lesions noted Trauma: no lacerations or abrasions Wounds: no wounds Neuro: General: patient oriented x3 and moves all extremities Cranial nerves: Yes Equal, round and reactive pupils present Extrem: General: Yes normal to inspection Right upper extremity: normal to inspection Left upper extremity: normal to inspection Right lower extremity: normal to inspection Left lower extremity: normal to inspection Course Reevaluation(s) Reevaluation #1: I&D was performed, moderate amount of purulent drainage expressed from region, irrigated with 60 cc of normal saline. Patient tolerated procedure well, see procedure note further detail. Unable to place word catheter secondary to pain and discomfort. Discharged on Augmentin and doxycycline as well as Tylenol and oxycodone. Advised to follow-up with OBGYN and given return precautions. Patient understands and agrees with plan. Patient stable for discharge Time: 12:11 Medications Administered Discontinued Medications Generic Name Dose Route Start Last Admin Trade Name Freq PRN Reason Stop Dose Admin Lidocaine HCl 5 ml 08/12/23 10:20 08/12/23 10:41 Lidocaine Hcl 1 % Mpf 5 Ml Vial INFILTRATI 08/12/23 10:21 Not Given ONCE ONE Oxycodone HCl 5 mg 08/12/23 10:43 08/12/23 10:50 Oxycodone Hcl Immed Release 5 Mg Tablet PO 08/12/23 10:44 5 mg ONCE ONE Administration Medical Decision Making Medical Decision Making MDM Narrative: This is a 43-year-old female presenting to the emergency department with complaints of Bartholin cyst times 2-3 weeks. She has already been placed on antibiotics without any relief. On arrival, mildly hypertensive at 155/79, all other vital signs within normal limits. On examination, patient has asymmetric swelling at the inferior aspect of the right vulva, with induration and fluctuance. Exam findings consistent with Bartholin cyst requiring incision and drainage. Given exquisite tenderness, will premedicate with oxycodone Differential Diagnosis Differential Diagnoses: The differential diagnosis associated with the presentation includes Cellulitis, Bartholin cyst, abscess, folliculitis Radiology Impression Discussion of test interpretation with radiology: I have reviewed the radiologist's reading. External Record Review External record reviewed: Inpatient record, Office record, Outpatient record, Prior outpatient labs, Prior outpatient radiology, Primary care record and Outside ED record Procedures Abscess I/D Site: bartholin's gland Side (if applicable): right Sedation/analgesia: none Local Anesthetic: lidocaine 1% and with epi Amount of anesthesia used (mL): 4 Technique: incised with blade Amount of fluid expressed (mL): 5 Sent for culture/gram staining?: No Irrigation: Yes Packing used?: none Discharge Plan Discharge Clinical Impression: Abscess of Bartholin's gland Patient Disposition: Home, Self-Care Instructions: Abscess (ED), Abscess Follow-up (ED), Incision and Drainage (ED) Additional Instructions: Your seen in the emergency department after having a Bartholin's gland abscess. We had to incise and drain this abscess. It is very important to perform warm Sitz bath or apply warm compresses 5-6 times per day. It is normal to continually have drainage expressed from this region. Please take prescribed antibiotic as directed. Finish the entire course even if your feeling better. I am recommending you follow-up with your OBGYN, I would call next week for follow-up. If any new or worsening symptoms occur including but not limited to worsening swelling, redness, fevers or chills, please return for re-evaluation. I am also prescribing you pain medication, please take ibuprofen and Tylenol as needed for pain. I am also giving oxycodone, this is a strong narcotic pain medication, only take as needed for severe pain only. Please be advised that this cause drowsiness, do not drink alcohol or drive while taking this. This medication is also addictive, therefore it is very important that you do not use beyond severe pain. Prescriptions: New amoxicillin-pot clavulanate 875-125 mg tablet 1 tab PO BID 7 Days Qty: 14 0RF doxycycline hyclate 100 mg capsule 100 mg PO BID 7 Days Qty: 14 0RF acetaminophen [Tylenol Extra Strength] 500 mg tablet 1,000 mg PO Q6H PRN (Reason: pain) Qty: 30 0RF Rx Instructions: Do not exceed 4000 mg in a 24 hour period. oxycodone 5 mg tablet 5 mg PO Q6H PRN (Reason: pain) Qty: 5 0RF Rx Instructions: Partial Fill upon patient request. No Action eszopiclone [Lunesta] 1 mg tablet 1 tab PO BEDTIME PRN (Reason: Sleep) lorazepam 0.5 mg tablet 0.5 mg PO DAILY PRN (Reason: Anxiety) bupropion HCl 150 mg tablet sustained-release 12 hr 150 mg PO DAILY clotrimazole 1 % cream 1 appl topical BID Qty: 45 3RF Stand Alone Forms: Work/School Release
[2023-08-12] MEDS: oxyCODONE HCl Immed Release 5 MG TABLET PO (10:50)
[2023-08-12] MEDS: Lidocaine HCl 1%/Epi 1:100,000 10 ML VIAL INFILTRATI (11:45)
[2023-08-12 12:00] VITALS: BP 118/64; PULSE 64; RESP 16; TEMP 36.6; O2SAT 98
--- NOTE | 2023-08-12 12:15 | PC.NURSE ---
felt dizzy on discharge- waited 10 min- bp rechecked and stable. given crackers and juice. felt well. yolanda ayala aware. pt d/c'd and walked out well to [facility] stating the procedure helped her pain.
== END 2023-08-12 12:27 | disposition home or self-care (01) ==
PROVIDERS: Emergency Provider Emergency Medicine; PCP Pediatrics
DX: N75.0 Cyst of Bartholin's gland (principal); R10.2 Pelvic and perineal pain
CPT/HCPCS: 56420; 99284

== ENCOUNTER 2024-05-08 12:34 | Outpatient (AMB) | payer OTHER, SELFPAY ==
--- NOTE | 2024-05-08 12:37 | MHC.OFFVISWM ---
VS Expanded 05/08/24 12:44 Height 5 ft Weight 130 lb BMI 25.4 Intake Visit Reasons: TV PO LRYGB 08/03 Allergies kiwi [KIWI] Allergy (Intermediate, Verified 08/12/23 09:39) LIP SWELLING, THROAT ITCHING Medication List - Last Reconciled 05/08/24 by SOLOMON Cruz acetaminophen (Tylenol Extra Strength) 1,000 mg (2 x 500 mg) PO Q6H PRN bupropion HCl SR 150 mg PO DAILY clotrimazole 1% 1 appl topical BID docusate sodium 100 mg PO BID eszopiclone (Lunesta) 1 tab PO BEDTIME PRN inulin 2 grams PO DAILY lorazepam 0.5 mg PO DAILY PRN oxycodone 5 mg PO Q6H PRN HPI Comments Details: This?is a?44?yo female who is s/p LSG 07/2017. Also s/p panniculectomy and brachioplasty in 2020. Weight at last visit on 08/16/2022 was 122.4 pounds with a BMI of 22.7, weight today is 130 pounds, representing a 7.6 pound weight gain with a BMI today of 25.? No complaints of nausea, emesis, abdominal pain or reflux. Reports constipation. Uses Dulcolax OTC which helps a little. Present meal plan includes: coffee for breakfast soup with fruit for lunch dinner of salmon or chicken Pt does report rashes of inner thighs. Has had to use topical cream (clotrimazole) to prevent rashes but this has not completely resolved the problem. Has to wear very tight pants/compressive pants to hold skin in place, often has to wear 2 layers of pants. Getting dressed is more difficult due to having to fit [address] The excess skin limits her mobility particularly with walking as the excess skin gets in the way. The excess skin is very uncomfortable during normal daily movement- heavy and rubs together. [facility] Medical History Panic attacks Hepatitis C Intestinal malabsorption following gastrectomy Anastomotic ulcer S/P gastric bypass Morbid obesity Depression Anxiety Obstructive sleep apnea Hypertension Surgical History S/P panniculectomy History of esophagogastroduodenoscopy (EGD) H/O gastric bypass Hx laparoscopic cholecystectomy H/O tubal ligation Previous section Family History Father Diabetes Mother No problems noted. Brother No problems noted. Brother No problems noted. Brother No problems noted. Sister No problems noted. Sister No problems noted. Sister No problems noted. Daughter No problems noted. Son No problems noted. Social History Are you a primary direct support professional caregiver to a significant other at home: No Do you presently have visiting nurse or other home services: No Alcohol intake: current Alcohol intake frequency: holidays/special occasions only service: No Current occupational status: disabled Telehealth Telehealth Telehealth Platform: Telephone Location of provider rendering services: other Location of patient: address on file Patient Identification confirmed using: Name, : Yes Telehealth method: voice only Patient verbally consented to treatment: Yes Patient verbally consented to billing insurance company: Yes Patient informed of any privacy concerns related to visit: Yes Minutes spent on Phone/Video with Pt.: 22 Assessment & Plan Assessment & Plan (1) Excess skin: Code(s): L98.7 - Excessive and redundant skin and subcutaneous tissue Category: Medical (2) S/P panniculectomy: Code(s): Z98.890 - Other specified postprocedural states Category: Medical (3) H/O gastric bypass: Comment: DOS 08/10/17, Dr. Pappas Code(s): Z98.84 - Bariatric surgery status Category: Medical Plan Protein intake is far too low, pt is skipping meals. Advised protein shake for breakfast (can mix premade shake with coffee or add protein powder to coffee), have a bar or yogurt for lunch, meal of protein/veg for dinner. Discussed necessity of adequate meal plan with sufficient nutrition for good healing after another operation. Pt is having issues of excess skin of upper thighs, resulting in recurrent rashes/chafing refractory to topical Rx treatment. In addition her activities of daily living are affected and more difficult (dressing, walking) due to discomfort of excess skin. Clotrimazole refilled per pt request. RTC 6-8 weeks for in person visit, for physical exam and photos. Can submit to insurance at that time if pt is ready. She reports that Aug/September may be better timing for surgery based on her job which requires constant walking - discussed likelihood of needing to be out of work for ~2 months. I spent a total of 30 minutes reviewing/updating records, examining the patient and counseling the patient on weight management as detailed above. Orders: Orders Insulin Today Z98.84 - Bariatric surgery status Hemoglobin A1c Today Z98.84 - Bariatric surgery status Complete Blood Count Auto Diff Today Z98.84 - Bariatric surgery status Comprehensive Met. Panel Today Z98.84 - Bariatric surgery status Vitamin B12 and Folate Today Z98.84 - Bariatric surgery status C Reactive Protein Today Z98.84 - Bariatric surgery status Vitamin A Today Z98.84 - Bariatric surgery status Lipid Panel Today Z98.84 - Bariatric surgery status IRON PROFILE Today Z98.84 - Bariatric surgery status Zinc Today Z98.84 - Bariatric surgery status Vitamin B1 Today Z98.84 - Bariatric surgery status TSH reflex Free T4 Today Z98.84 - Bariatric surgery status Ferritin Today Z98.84 - Bariatric surgery status Vitamin D 25-OH Total Today Z98.84 - Bariatric surgery status Medications: New inulin 2 grams PO DAILY 90 tabs 3RF docusate sodium 100 mg PO BID 90 caps 3RF Refilled clotrimazole 1% 1 appl topical BID 45 grams 3RF
[2024-05-08 12:44] VITALS: BMI 25.4
== END 2024-05-08 13:01 | disposition home or self-care (01) ==
LOC: HO.HBS 12:34
PROVIDERS: PCP Pediatrics; Visit Provider Physician Assistant Surgical
DX: L98.7 Excessive and redundant skin and subcutaneous tissue (principal); Z98.890 Other specified postprocedural states; Z98.84 Bariatric surgery status
CPT/HCPCS: 99214; G2211

== ENCOUNTER → 2024-05-08 12:34 | Outpatient (BNVA) | payer OTHER, SELFPAY | PROVIDERS: PCP Pediatrics; Visit Provider Physician Assistant Surgical ==

== ENCOUNTER 2025-04-18 10:43 | Outpatient (REF) | payer OTHER, SELFPAY ==
--- OUTSIDE RECORDS SUMMARY | 2025-04-18 10:00 | XMS_ITS | Encounter Summary ---
Author Organization [employer] Address [address] [place] [address] 7 [place] [address] Care Team Providers Care Building Serviceman Name Role Phone Aline Healy MD Primary Care Provider [phone] Reason for Referral * Medications - Closed Specialty Diagnoses / Procedures Referred By Contgrazyna t Referred To Contact Diagnoses Chronic bilateral low back pain without sciatica Aline Healy MD [address] [place] [address] Phone: tel: fax: Referral ID Status Reason Start Date Expiration Date Visits Re quested Visits Authorized [id number] Closed 1 1 Encounter Details Date Type Department Care Team ([facility] st Contact Info) Description 04/18/2025 10:00 AM EDT Office Visit [facility] CHC MED & PEDS [address] [place] [address] Aline Healy MD [address], [place] [phone] Mood disorder of depressed type (Primary Dx); Dietary counseling; Exercise counseling; Tobacco dependence syndrome; Routine screening for STI (sexually transmitted infection); H/O gastric bypass; Screening for colon cancer; Encounter for immunization; Chronic bilateral low back pain without sciatica Social History Tobacco Use Types Packs/Day Years Used Date Smoking Tobacco: Former Cigarettes Passive Smoke Exposure: Past Smokeless Tobacco: Never Tobacco Cessation:Counseling Given: Not Answered Alcohol Use Standard Drinks/Week Comments Yes 2 (1 standard drink = 0.6 oz pur e alcohol) Alcohol Answer Date Recorded Frequency of Alcohol Consumption Not on file 04/18/2025 How many drinks containing a lcohol do you have on a typical day when you are drinking? 0 04/18/2025 How often do you have six or more drinks on one occasion? 1 04/18/2025 Depression Answer Date Recorded Patient Health Questionnaire-9 Score 14 04/18/2025 Patient Health Questionnaire-9 Score 14 04/18/2025 Last PHQ-9: Questionnaire Data Not on file 1 Housing Stability Answer Date Recorded What is your housing situation today? I have kenya mcnair 04/10/[address] you li ve. Do you have problems with any of the following? None of the above 04/10/2025 Food Insecurity Answer Date Recorded Within the past 12 months, y ou worried that your food would run out before you got money to buy more: Sometimes True 2024 Within the past 12 months,th e food you bought just didn't last and you didn't have enough money to get more: Sometimes True 04/10/2025 Transportation Answer Date Recorded In the past 12 months, has l ack of transportation kept you from medical appts, meetings, work or from getting things needed for daily living? No 04/10/2025 Utilities Answer Date Recorded In the past 12 months, has t he electric, gas, oil or water company threatened to shut off services in your home? No 04/10/2025 Depression Answer Date Recorded Patient Health Questionnaire-2 Score 5 04/18/2025 Internet Access Answer Date Recorded Internet Access Q1 Yes 04/10/2025 Internet Access Q2 Not on file 04/10/2025 Comments No Intention Date Recorded No desire to become (finding) 1 Sex and Gender Information Value Date Recorded Sex Assigned at Female 05/16/2022 10:19 AM EDT Legal Sex Female 10:19 AM EDT Gender Identity Female 05/16/2022 10:19 AM EDT Sexual Orientation Choose not to disclose 2021 10:19 AM EDT documented as of this encounter Last Filed Vital Signs Vital Sign Reading Time Taken Comments Blood Pressure 138/84 04/18/2025 10:07 AM EDT Pulse 72 04/18/2025 10:07 AM EDT Temperature 36.6 C (97.9 F) 04/18/2025 10:07 AM EDT Respiratory Rate 16 04/18/2025 10:07 AM EDT Oxygen Saturation - - Inhaled Oxygen Concentration - - Weight 62.1 kg (137 lb) 04/18/2025 10:07 AM EDT Height 154.9 cm (5' 1 ) 04/18/2025 10:07 AM EDT Body Mass Index 25.89 04/18/2025 10:07 AM EDT documented in this encounter Functional Status * Over the past 2 weeks, how often have you been bothered by any of the following problems? Question Answer Date of Assessment Author Patient Health Questionnaire -2 Score 5 04/18/2025 10:09 AM EDT Ashley Romero MA * Little interest or pleasure in doing things Answer Date of Assessment Author More than half the days 04/18/2025 10:09 AM EDT Kim Romero MA * Feeling down, depressed, or hopeless Answer Date of Assessment Author Nearly every day 04/18/2025 10:09 AM EDT Kim Ross MA * Trouble falling or staying asleep, or sleeping too much Answer Date of Assessment Author Nearly every day 04/18/2025 10:09 AM Kim Theodore MA * Feeling tired or having little energy Answer Date of Assessment Author Several days 04/18/2025 10:09 AM Kim Lerner MA * Poor appetite or overeating Answer Date of Assessment Author Several days 04/18/2025 10:09 AM Kim Lerner MA * Feeling bad about yourself - or that you are a failure or have let yourself or your family down Answer Date of Assessment Author Several days 04/18/2025 10:09 AM Kim Lerner MA * Trouble concentrating on things, such as reading the newspaper or watching television Answer Date of Assessment Author Several days 04/18/2025 10:09 AM Kim Lerner MA * Moving or speaking so slowly that other people could have noticed? Or the opposite - being so fidgety or restless that you have been moving around a lot more than usual. Answer Date of Assessment Author More than half the days 04/18/2025 10:09 AM EDT Kim Romero MA * Thoughts that you would be better off or hurting yourself in some way Answer Date of Assessment Author Not at all 04/18/2025 10:09 AM Kim Lerner MA * Patient Health Questionnaire-9 Score Answer Date of Assessment Author 14 04/18/2025 10:09 AM EDT Kim Patrick MA * How difficult have these problems made it for you to do your work, take care of things at home, or get along with other people? Answer Date of Assessment Author Somewhat difficult 04/18/2025 10:09 AM EDT Kim Pack MA documented as of this encounter Plan of Treatment Upcoming Encounters Date Type Department Care Team (Late st Contact Info) Description 06/19/2025 1:30 PM EST Office Visit [facility] OPTOMETRY [address] [place] [address] Elieser, Vera, OD [address] [place] [address] Scheduled Orders Name Type Priority Associated Diagnoses Orde r Schedule Basic Metabolic Panel, Fasting Lab Routine Dietary counseling Exercise counseling Mood disorder of depressed type Tobacco dependence syndrome Routine screening for STI (sexually transmitted infection) H/O gastric bypass Expected: 04/18/2025 (Approximate), Expires: 04/18/2026 CBC auto differential Lab Routine Dietary counseling Exercise counseling Mood disorder of depressed type Tobacco dependence syndrome Routine screening for STI (sexually transmitted infection) H/O gastric bypass Expected: 04/18/2025 (Approximate), Expires: 04/18/2026 Iron And Total Iron Binding Capacity Lab Routine Dietary counseling Exercise counseling Mood disorder of depressed type Tobacco dependence syndrome Routine screening for STI (sexually transmitted infection) H/O gastric bypass Expected: 04/18/2025, Expires: 04/18/2026 Comprehensive Metabolic Panel Lab Routine Dietary counseling Exercise counseling Mood disorder of depressed type Tobacco dependence syndrome Routine screening for STI (sexually transmitted infection) H/O gastric bypass Expected: 04/18/2025 (Approximate), Expires: 04/18/2026 TSH W/Reflex to FT4 Lab Routine Dietary counseling Exercise counseling Mood disorder of depressed type Tobacco dependence syndrome Routine screening for STI (sexually transmitted infection) H/O gastric bypass Expected: 04/18/2025 (Approximate), Expires: 04/18/2026 Vitamin B12/Folate, Serum Panel Lab Routine Dietary counseling Exercise counseling Mood disorder of depressed type Tobacco dependence syndrome Routine screening for STI (sexually transmitted infection) H/O gastric bypass Expected: 04/18/2025, Expires: 04/18/2026 Vitamin D, 25-Hydroxy, Total, Immunoassay Lab Routine Dietary counseling Exercise counseling Mood disorder of depressed type Tobacco dependence syndrome Routine screening for STI (sexually transmitted infection) H/O gastric bypass Expected: 04/18/2025 (Approximate), Expires: 04/18/2026 Vitamin B1 Lab Routine Dietary counseling Exercise counseling Mood disorder of depressed type Tobacco dependence syndrome Routine screening for STI (sexually transmitted infection) H/O gastric bypass Expected: 04/18/2025 (Approximate), Expires: 04/18/2026 Vitamin B6 Lab Routine Dietary counseling Exercise counseling Mood disorder of depressed type Tobacco dependence syndrome Routine screening for STI (sexually transmitted infection) H/O gastric bypass Expected: 04/18/2025, Expires: 04/18/2026 Urinalysis, Complete, with Reflex to Culture Lab Routine Dietary counseling Exercise counseling Mood disorder of depressed type Tobacco dependence syndrome Routine screening for STI (sexually transmitted infection) H/O gastric bypass Expected: 04/18/2025 (Approximate), Expires: 04/18/2026 Lipid Panel, Standard Lab Routine Dietary counseling Exercise counseling Mood disorder of depressed type Tobacco dependence syndrome Routine screening for STI (sexually transmitted infection) H/O gastric bypass Expected: 04/18/2025 (Approximate), Expires: 04/18/2026 Hepatitis C Viral RNA, Quantitative, Real-Time PCR Lab Routine Dietary counseling Exercise counseling Mood disorder of depressed type Tobacco dependence syndrome Routine screening for STI (sexually transmitted infection) H/O gastric bypass Expected: 04/18/2025 (Approximate), Expires: 04/18/2026 Chlamydia/N. Gonorrhoeae, PCR, Urine Lab Routine Dietary counseling Exercise counseling Mood disorder of depressed type Tobacco dependence syndrome Routine screening for STI (sexually transmitted infection) H/O gastric bypass Ordered: 04/18/2025 HIV-1/2 Antigen and Antibodies, Fourth Generation, with Reflexes Lab Routine Dietary counseling Exercise counseling Mood disorder of depressed type Tobacco dependence syndrome Routine screening for STI (sexually transmitted infection) H/O gastric bypass Expected: 04/18/2025 (Approximate), Expires: 04/18/2026 Syphilis Screen Lab Routine Dietary counseling Exercise counseling Mood disorder of depressed type Tobacco dependence syndrome Routine screening for STI (sexually transmitted infection) H/O gastric bypass Expected: 04/18/2025, Expires: 04/18/2026 Cologuard colon cancer screening Lab Routine Screening for colon cancer Ordered: 04/18/2025 documented as of this encounter Visit Diagnoses Diagnosis Mood disorder of depressed type- Primary Dietary counseling Dietary surveillance and counseling Exercise counseling Tobacco dependence syndrome Tobacco use disorder Routine screening for STI (sexually transmitted infection) Screening examination for venereal disease H/O gastric bypass Screening for colon cancer Special screening for malignant neoplasms, colon Encounter for immunization Chronic bilateral low back pain without sciatica documented in this encounter Additional Health Concerns Assessment Noted Time PHQ-9 Depression Total Score: 14 025 10:09 AM EDT documented as of this encounter Care Teams Building Serviceman Relationship Specialty Start Date End Date Aline Healy MD [address] [place] [id number] PCP - General Family Medicine 07/31/13 documented as of this encounter
--- OUTSIDE RECORDS SUMMARY | 2025-04-18 11:43 | XMS_ITS | Encounter Summary ---
Author Organization [employer] Address [address] [place] [address] 7 [place] [address] Care Team Providers Care Piano Bench Assembler Name Role Phone Aline Healy MD Primary Care Provider [phone] Reason for Visit * Reason Onset Date Comments Prior Authorization 12/19/2023 Encounter Details Date Type Department Care Team ([facility] Contact Info) Description 12/19/2023 Telephone [facility] CHC MED & PEDS [address] [place] [address] Aline Healy MD [address] [place] [address] Prior Authorization Social History Tobacco Use Types Packs/Day Years Used Date Smoking Tobacco: Every Day Cigarettes Smokeless Tobacco: Never Alcohol Use Standard Drinks/Week Comments Yes 2 (1 standard drink = 0.6 oz pur e alcohol) Depression Answer Date Recorded Patient Health Questionnaire-9 Score 17 08/22/2023 Patient Health Questionnaire-9 Score 17 08/22/2023 Last PHQ-9: Questionnaire Data Not on file 0 08/22/2023 Housing Stability Answer Date Recorded What is your housing situation today? I have kenya mcnair 08/22/[address] you li ve. Do you have problems with any of the following? None of the above 08/22/2023 Food Insecurity Answer Date Recorded Within the past 12 months, y ou worried that your food would run out before you got money to buy more: Never True 08/22/2023 Within the past 12 months,th e food you bought just didn't last and you didn't have enough money to get more: Never True 12/2023 Transportation Answer Date Recorded In the past 12 months, has l ack of transportation kept you from medical appts, meetings, work or from getting things needed for daily living? No 08/22/2023 Utilities Answer Date Recorded In the past 12 months, has t he electric, gas, oil or water company threatened to shut off services in your home? No 08/22/2023 Depression Answer Date Recorded Patient Health Questionnaire-2 Score 6 08/22/2023 Comments No Sex and Gender Information Value Date Recorded Sex Assigned at Female 05/16/2022 10:19 AM EDT Legal Sex Female 10:19 AM EDT Gender Identity Female 05/16/2022 10:19 AM EDT Sexual Orientation Choose not to disclose 2021 10:19 AM EDT documented as of this encounter Miscellaneous Notes * Telephone Encounter - Erica Menon LPN - 01/02/2024 10:33 AM EDT lunesta brand name requires PA however pt did pickler helper medication on 12.21.23 * Telephone Encounter - Ling Ibrahim RN - 01/01/2024 10:38 AM EDT Incoming call from Sharon regarding message below. Sharon states PCP has tried in the past with Ambien (unsure of how far ago) with no effect. Pt has tried Ambien, trazodone and Remeron with no effect.Sharon states pt currently has generic Lunesta but pt states it does not help and branded does. But for Lunesta name brand, required a PA. Pt is in the process of getting a new psych but has no psych prescriber at the moment. Sharon informed that message would be sent to PCP for review and will be contacted for POC. Last mention of Ambien prescribed was on 08/31/21 encounter and it appears going further back pt was on Ambien from 2019 before switching to Lunesta. * Telephone Encounter - Ling Ibrahim RN - 01/01/2024 10:12 AM EDT TC X1 to [facility] regarding request below. LVM to return call. * Telephone Encounter - Erica Menon LPN - 12/19/2023 11:03 AM EDT Please review message below . Need documentation . ? Tc from [facility] with [employer] stating that medication Lunesta 3 MG tablet needs a PA . * Telephone Encounter - Fermin Sharp - 12/19/2023 9:36 AM EDT Tc from [facility] with [employer] stating that medication Lunesta 3 MG tablet needs a PA . documented in this encounter Plan of Treatment Upcoming Encounters Date Type Department Care Team (Late st Contact Info) Description 06/19/2025 1:30 PM EST Office Visit [facility] OPTOMETRY [address] [place] [address] Vera Mon, OD [address] [place] [address] documented as of this encounter Visit Diagnoses Not on filedocumented in this encounter Additional Health Concerns Assessment Noted Time PHQ-9 Depression Total Score: 17 024 8:57 AM EST documented as of this encounter Care Teams Piano Bench Assembler Relationship Specialty Start Date End Date Aline Healy MD [address] [place] [address] PCP - General Family Medicine 07/31/13 documented as of this encounter
--- OUTSIDE RECORDS SUMMARY | 2025-04-18 11:43 | XMS_ITS | Encounter Summary ---
Author Organization [employer] Address [address] [place] [address] Care Team Providers Care Automatic Folder Seamer Name Role Phone Aline Healy MD Primary Care Provider [phone] Encounter Details Date Type Department Care Team (Latest Contact Info) Description 04/18/2025 Travel Social History Tobacco Use Types Packs/Day Years Used Date Smoking Tobacco: Former Cigarettes Passive Smoke Exposure: Past Smokeless Tobacco: Never Alcohol Use Standard Drinks/Week [...] Q2 Not on file 04/10/2025 Comments No Sex and Gender Information Value Date Recorded Sex Assigned at Female 05/16/2022 10:19 AM EDT Legal Sex Female 10:19 AM EDT Gender Identity Female 05/16/2022 10:19 AM EDT Sexual Orientation Choose not to disclose 2021 10:19 AM EDT documented as of this encounter Functional Status * Over the past 2 weeks, how often have you been bothered by any of the following problems? Question Answer Date of Assessment Author Patient Health Questionnaire -2 Score 5 04/18/2025 10:09 AM EDT Ashley Romero MA * Little interest or pleasure in doing things Answer Date of Assessment Author More than half the days 04/18/2025 10:09 AM Kim Coffey MA * Feeling down, depressed, or hopeless [...] Assessment Author Several days 04/18/2025 10:09 AM EDT Kim Patrick MA * Moving or speaking so slowly [...] Author Not at all 04/18/2025 10:09 AM EDT Kim Patrick MA * Patient Health Questionnaire-9 Score Answer [...] 1:30 PM EST Office Visit [facility] OPTOMETRY [address] [place] [address] ElieserVera escoto, OD [address] [place] [address] documented as of this encounter Visit Diagnoses Not on filedocumented in this encounter Additional Health Concerns Assessment Noted Time PHQ-9 Depression Total Score: 14 025 10:09 AM EDT documented as of this encounter Care Teams Automatic Folder Seamer Relationship Specialty Start Date End Date Aline Healy MD [address] [place] [address] PCP - General Family Medicine 07/31/13 documented as of this encounter
--- OUTSIDE RECORDS SUMMARY | 2025-04-18 11:43 | XMS_ITS | Encounter Summary ---
Author Organization [employer] Address [address] [facility] 7 [place] [address] Care Team Providers Care Missile Inspector Preflight Name Role Phone Aline Healy MD Primary Care Provider [phone] Reason for Visit * Reason Onset Date Comments Nurse Triage 12/19/2023 Encounter Details Date Type Department Care Team ([facility] st Contact Info) Description 12/19/[address] [facility] CHC MED & PEDS [address] [place] [address] Aline Healy MD [address] [place] [address] Nurse Triage Social History Tobacco Use Types Packs/Day Years [...] encounter Miscellaneous Notes * Telephone Encounter - Wing Emmie RN - 12/22/2023 9:59 AM EDT Tc to Sharon, advised that meds requested were ordered by Dr. Oneal. Sharon verbalized understanding and agreement with plan. Stated she would contact pt to let her know the meds were sent to the pharmacy. * Telephone Encounter - Allie Lott RN - 12/19/2023 10:01 AM EDT Call was not direct transferred by PAR and not set as high priority. Call returned to Sharon [facility] Clinician at [facility] . Per Sharon patient was seen today by her in office. Pt is concerned Eun De Leon was prescriber at [facility]. Pt was supposed to get refills for 3 months. Per clinician was never sent in but was under the understanding that PCP was going to be covering refills until a new prescriber was established for patient. Sharon states that during session today pt did report having suicidal ideation last week after having an argument with son and feeling overwhelmed about not having medications . Per Sharon clinician patient contracted for safe ty, Denied any thoughts or plans for self harm today. Sharon states pt to be seen on a weekly basis by her. Sharon contacted pharmacy and was advised that only Rx received was Lunesta but that requires a PA.,per pharmacy PA request sent on 12/13/23. Advised PCP Aline Healy MD out of office this week. Will send to team and a covering provider to review and determine if able to send in Rx for following meds noted on med refill reconcile. Bupropion SR 100mg take 2 tablets by mouth once a day last Rx 11/08/23 for 30 day supply. Lorazepam 0.5mg take 1 tablet my bouth twice daily as needed for panic. Last Rx 11/11/23 by Ashley Pettit 30 day supply Lunesta 3mg take 1 tablet by mouth every night at bedtime. Take two nights off a month to prevent depnedence. Last Rx 11/09/23 by Ashley Pettit for 28 day supply. Protocol Used: Medication Refill and Renewal Call (Adult) Protocol-Based Disposition: Discuss with PCP and Callback by Nurse within 1 Hour Positive Triage Question: * Prescription refill request for ESSENTIAL medicine (i.e., likelihood of harm to patient if not taken) and triager unable to refill per department policy * All higher-acuity triage questions were negative * Telephone Encounter - Herminia Aaron - 12/19/2023 9:33 AM EDT Symptom: Suicidal Thoughts Outcome: Schedule an urgent appointment (within 1 hour) or talk to a nurse or provider soon Reason: Caller denied all higher acuity questions The caller accepted this outcome Please contact sharon from [facility] at [phone] documented in this encounter Plan of Treatment Upcoming Encounters Date Type Department Care Team (Late st Contact Info) Description 06/19/2025 1:30 PM EST Office Visit [facility] OPTOMETRY [address] [place], [place] [id number] Vera Mon, OD [address] [place] [address] documented as of this encounter Visit Diagnoses Not on filedocumented in this encounter Additional Health Concerns Assessment Noted Time PHQ-9 Depression Total Score: 17 024 8:57 AM EST documented as of this encounter Care Teams Missile Inspector Preflight Relationship Specialty Start Date End Date Aline Healy MD [address] [place] [id number] PCP - General Family Medicine 07/31/13 documented as of this encounter
--- OUTSIDE RECORDS SUMMARY | 2025-04-18 11:43 | XMS_ITS | Encounter Summary ---
Author Organization [employer] Address [address] [facility] 7t [place] [address] Care Team Providers Care Plater Helper Name Role Phone Aline Healy MD Primary Care Provider [phone] Reason for Visit * Reason Onset Date Comments Results 07/27/2023 Encounter Details Date Type Department Care Team ([facility] st Contact Info) Description 07/27/2023 Telephone [facility] MED & PEDS [address] [place], [place] [phone] Aline Healy MD [address] [place] [address] Results Social History Tobacco Use Types Packs/Day Years Used Date Smoking Tobacco: Every Day Cigarettes Smokeless Tobacco: Never Alcohol Use Standard Drinks/Week Comments Yes 2 (1 standard drink = 0.6 oz pur e alcohol) Depression Answer Date Recorded Patient Health Questionnaire-9 Score 18 08/18/2022 Housing Stability Answer Date Recorded What is your housing situation today? I have kenya mcnair 05/15/[address] you li ve. Do you have problems with any of the following? None of the above 05/15/2023 Food Insecurity Answer Date Recorded Within the past 12 months, y ou worried that your food would run out before you got money to buy more: Never True 05/15/2023 Within the past 12 months,th e food you bought just didn't last and you didn't have enough money to get more: Never True Transportation Answer Date Recorded In the past 12 months, has l ack of transportation kept you from medical appts, meetings, work or from getting things needed for daily living? No 05/15/2023 Utilities Answer Date Recorded In the past 12 months, has t he electric, gas, oil or water company threatened to shut off services in your home? No 05/15/2023 Depression Answer Date Recorded Patient Health Questionnaire-2 Score 4 08/18/2022 Comments No Sex and Gender Information Value Date Recorded Sex Assigned at Female 05/16/2022 10:19 AM EDT Legal Sex Female 10:19 AM EDT Gender Identity Female 05/16/2022 10:19 AM EDT Sexual Orientation Choose not to disclose 2021 10:19 AM EDT documented as of this encounter Miscellaneous Notes * Telephone Encounter - Ling Ibrahim RN - 07/27/2023 11:14 AM EST Noted. Returned call to pt and informed of recommended product. Pt verbalized understanding and agrees with plan. * Telephone Encounter - Roberta Khan MD - 07/27/2023 10:44 AM EST Recommended sitz baths * Telephone Encounter - Ling Ibrahim RN - 07/27/2023 10:28 AM EST Placed call to pt to inform of results. Pt advised on results and new abx added. Pt educated on proper hygiene and to avoid using douches and heavily scented products. Pt also advised taking probiotics or eating yogurt while on abx to avoid GI issues. Pt states speaking with provider and states provider advised her on some type of product pt can sit on to help symptoms but did not remember the name of it. Pt informed message would be sent to provider to see if she remembers on this product. Unsure if pt is referring to a sitz bath but pt states it was steam not water that was used. Pt informed if provider remembers product, will call to inform. Pt agrees with plan. * Telephone Encounter - Ling Ibrahim RN - 07/27/2023 10:28 AM EST ----- Message from Roberta Khan MD sent at 07/27/2023 9:21 AM EST ----- Hello Team! I attempt calling patient about results and had to leave a voice mail. She has + BV, sent metronidazole. Can you call her again later, please and thanks! Roberta * Telephone Encounter - Herminia Aaron - 07/27/2023 9:24 AM EST TC from pt requesting call back regarding Results. Type of results: BV swab Date when done: 07/25 Pt received call from provider, pt is returning call. Please contact pt at [phone] documented in this encounter Plan of Treatment Upcoming Encounters Date Type Department Care Team (Late st Contact Info) Description 06/19/2025 1:30 PM EST Office Visit [facility] OPTOMETRY [address] [place] [address] ElieserVera escoto, OD [address] [place] [address] documented as of this encounter Visit Diagnoses Not on filedocumented in this encounter Additional Health Concerns Assessment Noted Time PHQ-9 Depression Total Score: 18 023 11:26 AM EST documented as of this encounter Care Teams Plater Helper Relationship Specialty Start Date End Date Aline Healy MD [address] [place] [address] PCP - General Family Medicine 07/31/13 documented as of this encounter
--- OUTSIDE RECORDS SUMMARY | 2025-04-18 11:43 | XMS_ITS | Encounter Summary ---
Author Organization [employer] Address [address] [facility] 7t [place] [address] Care Team Providers Care Environmental Advisor Name Role Phone Aline Healy MD Primary Care Provider [phone] Reason for Visit * Reason Onset Date Comments Med Refill 12/12/2023 Encounter Details Date Type Department Care Team ([facility] Contact Info) Description 12/12/2023 Refill [facility] MED & PEDS [address] [facility] [place] [address] Aline Healy MD [address] [place] [address] Social History Tobacco Use Types Packs/Day Years [...] AM EDT documented as of this encounter Plan of Treatment Upcoming Encounters Date Type Department Care Team (Late st Contact Info) Description 06/19/2025 1:30 PM EST Office Visit [facility] [address] [place] [address] Elieser, Vera, OD [address] [place] [address] documented as of this encounter Visit Diagnoses Not on filedocumented in this encounter Additional Health Concerns Assessment Noted Time PHQ-9 Depression Total Score: 17 024 8:57 AM EST documented as of this encounter Care Teams Environmental Advisor Relationship Specialty Start Date End Date Aline Healy MD [address] [place] [address] PCP - General Family Medicine 07/31/13 documented as of this encounter
--- OUTSIDE RECORDS SUMMARY | 2025-04-18 11:43 | XMS_ITS | Encounter Summary ---
Author Organization [email or web address] Address [address] [facility] 7t [place] [address] Care Team Providers Care Gas Singer Name Role Phone Aline Healy MD Primary Care Provider [phone] Encounter Details Date Type Department Care Team ([facility] st Contact Info) Description 12/21/2023 Orders Only [facility] MED & PEDS [address] [place], [place] [phone] Lukasz Oneal MD [address] [place], [place] [phone] Mood disorder of depressed type (Primary Dx); Chronic bilateral low back pain without sciatica [...] Description 06/19/2025 1:30 PM EST Office Visit [facility] OPT[facility] [address] [place] [address] Elieser, Vera, OD [address] [place] [address] documented as of this encounter Visit Diagnoses Diagnosis Mood disorder of depressed type- Primary Chronic bilateral low back pain without sciatica documented in this encounter Additional Health Concerns Assessment Noted Time PHQ-9 Depression Total Score: 17 024 8:57 AM EST documented as of this encounter Care Teams Gas Singer Relationship Specialty Start Date End Date Aline Healy MD [address] [place] [address] PCP - General Family Medicine 07/31/13 documented as of this encounter
--- OUTSIDE RECORDS SUMMARY | 2025-04-18 11:43 | XMS_ITS | Encounter Summary ---
Author Organization [employer] Address [address] [facility] [address] [place] [address] Care Team Providers Care Android Software Engineer Name Role Phone Aline Healy MD Primary Care Provider [phone] Reason for Visit * Reason Onset Date Comments Chart Prep 04/15/2025 Encounter Details Date Type Department Care Team ([facility] Contact Info) Description 04/15/2025 Telephone [facility] CHC MED & PEDS [address] [place] [address] Aline Healy MD [address] [place] [address] Chart Prep Social History Tobacco Use Types Packs/Day Years [...] is your housing situation today? I have kenyarayray mcnair 04/10/[address] you [...] Recorded Patient Health Questionnaire-2 Score 6 08/22/2023 Internet Access Answer Date Recorded Internet Access [...] encounter Miscellaneous Notes * Telephone Encounter - Kim Romero MA - 04/15/2025 2:23 PM EDT Chart Prep Labs: not applicable Images: pending appt Referrals: appointment pending Vaccines due: Covid, Flu, PCV20, Tdap, Hep B, and Hep A Screenings: colonoscopy, mammogram, and LMP Overdue care gaps: SBIRT, PHQ-9, Disability screen, and Tobacco documented in this encounter Plan of Treatment Upcoming Encounters Date Type Department Care Team (Late st Contact Info) Description 06/19/2025 1:30 PM EST Office Visit [facility] OPT[facility] [address] [place] [address] Elieser, Vera, OD [address] [place] [address] documented as of this encounter Visit Diagnoses Not on filedocumented in this encounter Additional Health Concerns Assessment Noted Time PHQ-9 Depression Total Score: 17 024 8:57 AM EST documented as of this encounter Care Teams Android Software Engineer Relationship Specialty Start Date End Date Aline Healy MD [address] [place] [address] PCP - General Family Medicine 07/31/13 documented as of this encounter
--- OUTSIDE RECORDS SUMMARY | 2025-04-18 11:43 | XMS_ITS | Clinical Summary ---
Author Organization [employer] Address [address] [facility] [address] [facility] [facility] [address] 7[address] [place] [address] Care Team Providers Care Glass Ribbon Machine Operator Name Role Phone Aline Healy MD Primary Care Provider [phone] Allergies No known active allergies Medications * This document contains information received from the source organization and may not represent a complete record from that organization. Diclofenac Sodium (Voltaren) 1 % gel Apply topically twice a day. 08/31/19 22 Active clotrimazole (Lotrimin) 1 % cream APPLY TOPICALLY TO THE AFFECTED AREA TWICE DAILY 08/16/19 23 Active buPROPion SR (Wellbutrin SR) 150 MG 12 hr tablet Take 1 tablet (150 mg) by mouth Once per day. 180 tablet 12/19/19 24 Active LORazepam (Ativan) 0.5 MG tabletIndicat ions:Mood disorder of depressed type TAKE 1 TABLET(0.5 MG) BY MOUTH IN THE MORNING AND AT BEDTIME 30 tablet 06/03/20 24 Active Vraylar 1.5 MG capsule Take 1 capsule by mouth Once per day. 02/20/20 25 Active QUEtiapine (SEROquel) 100 MG tablet 03/31/20 25 Active Acetaminophen Extra Strength 500 MG tabletIndicat ions:Chronic bilateral low back pain without sciatica TAKE 1-2 TABLETS BY MOUTH EVERY 6 HOURS NEEDED 90 tablet 3 04/03/20 25 Active gabapentin (Neurontin) 100 MG capsule 1 capsule twice a day prn pain 60 capsule 04/03/20 25 Active cyclobenzapri ne (Flexeril) 10 MG tabletIndicat ions:Chronic bilateral low back pain without sciatica Take 1 tablet (10 mg) by mouth if needed in the morning, at noon, and at bedtime for muscle spasms for up to 10 days. 30 tablet 3 04/18/20 25 Active Nirmatrelvir& Ritonavir 300/100 (Paxlovid, 300/100,) 20 x 150 MG & 10 x 100MG tablet therapy pack Take 1 Dose by mouth 2 times daily. 30 each 08/22/19 24 025 Discontinued(Th erapy completed) doxycycline (Vibramycin) 100 MG capsule Take 100 mg by mouth 2 times daily. 08/12/19 24 025 Discontinued(Th erapy completed) Lunesta 3 MG tablet Take 1 tablet (3 mg) by mouth at bedtime. Take immediately before bedtime 28 tablet 12/13/19 24 025 Discontinued Acetaminophen Extra Strength 500 MG tabletIndicat ions:Chronic bilateral low back pain without sciatica TAKE 1-2 TABLETS BY MOUTH EVERY 6 HOURS NEEDED 90 tablet 3 12/21/19 24 Discontinued(Re order (will not trigger notification to Pharmacy)) eszopiclone (Lunesta) 3 MG tabletIndicat ions:Mood disorder of depressed type TAKE 1 TABLET(3 MG) BY MOUTH AT BEDTIME 30 tablet 04/24/20 24 025 Discontinued(Th erapy completed) cyclobenzapri ne (Flexeril) 5 MG tabletIndicat ions:Chronic bilateral low back pain without sciatica TAKE 1 TO 2 TABLETS BY MOUTH DAILY NEEDED FOR PAIN 30 tablet 3 09/03/19 25 025 Discontinued buPROPion SR (Wellbutrin SR) 100 MG 12 hr tabletIndicat ions:Mood disorder of depressed type TAKE 2 TABLETS(200 MG) BY MOUTH DAILY 60 tablet 3 09/28/19 25 025 Discontinued ketorolac (Toradol) 10 MG tablet Take 1 tablet (10 mg) by mouth every 6 (six) hours if needed for moderate pain for up to 5 days. 20 tablet 04/03/20 25 Hospital, Clinic, or Other Facility Administered Medication Ordered Dose Route Frequency Start Date End Date Status ketorolac (Toradol) injection 30 mgIndications:Lumbar back pain 30 mg IM Once 04/03/2025 04/03/2025 Ended Active Problems Problem Noted Date Diagnosed Date Chronic hepatitis C without hepatic coma 024 Routine screening for STI (sexually transmitted infection) 07/25/2023 Cyst of right Bartholin's gland 07/25/2023 Assessment & Plan (07/25/2023 5:00 PM EST): Discussed bartholin's cyst, recommended sitz baths. Will send antibiotics, if she requires drainage needs to be done by provide that does do this procedure. Hepatitis C antibody test positive 08/09/2019 Backache 12/14/2017 Mood disorder of depressed type 12/18/2015 Tobacco dependence syndrome 04/18/2012 Encounters * This document contains information received from the source organization and may not represent a complete record from that organization. Date Type Department Care Team Description 04/18/2025 10:00 AM EDT Office Visit [facility] MED & PEDS [address] [place] [address] Aline Healy MD Mood disorder of depressed type (Primary Dx); Dietary counseling; Exercise counseling; Tobacco dependence syndrome; Routine screening for STI (sexually transmitted infection); H/O gastric bypass; Screening for colon cancer; Encounter for immunization; Chronic bilateral low back pain without sciatica 04/18/2025 Travel 04/15/2025 Telephone [facility] MED & PEDS [address] [place] [address] Aline Healy MD Chart Prep 04/11/[address] [facility] [address] [place] [address] Aline Healy MD Care Coordination (CHW outreach for SDOH housing search-referral completed ) 04/10/[address] [facility] [address] [place] [phone] Aline Healy MD Pre-visit Planning (SDOH screening positive and Tobacco screening negative) 04/03/2025 1:00 PM EDT Office Visit [facility] MED & PEDS [address] [place] [address] Aline Healy MD Breast cancer screening by mammogram (Primary Dx); Lumbar back pain; Lumbar radiculopathy; Chronic bilateral low back pain without sciatica; Mood disorder of depressed type 04/03/2025 Travel 04/03/[address] [facility] CH[facility] MED & PEDS [address] [place] [address] Aline eHaly MD Nurse Triage from Last 3 Months Immunizations Immunization Administration Dates Next Due Influenza injectable quadriv alent IIV4 with preservative 08/18/2022,04/13/2017,04/26/2016,2014 Influenza injectable quadriv alent preservative free 05/21/2020 Influenza, seasonal, injecta ble, preservative free 04/18/2025 Pfizer Covid-19 Vaccine 12+ 09/01/2021, Tdap 08/05/2014 Social History Tobacco Use Types Packs/Day Years [...] not to disclose 2021 10:19 AM EDT Last Filed Vital Signs Vital Sign Reading Time Taken Comments Blood Pressure 138/84 04/18/2025 10:07 AM EDT Pulse 72 04/18/2025 10:07 AM EDT Temperature 36.6 C (97.9 F) 04/18/2025 10:07 AM EDT Respiratory Rate 16 04/18/2025 10:07 AM EDT Oxygen Saturation 98% 07/25/2023 3:36 PM EST Inhaled Oxygen Concentration - - Weight 62.1 kg (137 lb) 04/18/2025 10:07 AM EDT Height 154.9 cm (5' 1 ) 04/18/2025 10:07 AM EDT Body Mass Index 25.89 04/18/2025 10:07 AM EDT Plan of Treatment Upcoming Encounters Date Type Department Care Team (Late st Contact Info) Description 06/19/2025 1:30 PM EST Office Visit [facility] OPTOM[facility] [address] [place] [address] Elieser, Vera, OD [address] [place] [address] Health Maintenance Due Date Last Done Comments CT Colonography 1978 Colonoscopy 1978 Colorectal Cancer Screening 1978 FIT DNA/Cologuard 1978 FIT 1978 FOBT 1978 Sigmoidoscopy 1978 Hepatitis A Vaccines (1 of 2 - Risk 2-dose series) 1997 Hepatitis B Vaccines (1 of 3 - 19+ 3-dose series) 1997 Pneumococcal Vaccine: Pediatrics (0 to 5 Years) and At-Risk Patients (6 to 49) Years (1 of 2 - PCV) 1997 Mammogram 04/12/2023 04/12/2021, 06/0 10/2018, 12/07/2018 DTaP/Tdap/Td Vaccines (2 - Td or Tdap) 08/05/2024 08/05/2014 COVID-19 Vaccine (3 - season) 2025 09/01/2021, 08/11/2021 Depression Monitoring 10/17/2025 04/18/2025, 025 Cervical Cancer Screening 01/27/2026 HPV/Cotest 01/27/2026 01/27/2021 Pap Smear 01/27/2026 01/27/2021 SDOH Screening 04/10/2026 04/10/2025 Alcohol/Substance Use Screening 04/18/2026 04/18/2025 Disability Screening 04/18/2026 04/18/2025 Family Planning (PISQ) 04/18/2026 04/18/2025 Tobacco Screening 04/18/2026 04/18/2025 Zoster Vaccines (1 of 2) 2028 RSV Patients and Patients Aged 60 years or older (1 - 1-dose 75+ series) 2053 HIV Screening Completed 07/27/2023, 01/15, 04/08/2020, Additional history exists Influenza Vaccine Completed 04/18/2025, , 05/21/2020, Additional history exists HIB Vaccines Aged Out No longer eligi ble based on patient's age to complete this topic HPV Vaccines Aged Out No longer eligi ble based on patient's age to complete this topic IPV Vaccines Aged Out No longer eligi ble based on patient's age to complete this topic Meningococcal B Vaccine Aged Out No l onger eligible based on patient's age to complete this topic Meningococcal Vaccine Aged Out No pepito gin eligible based on patient's age to complete this topic RSV under 20 months Aged Out No longe r eligible based on patient's age to complete this topic Rotavirus Vaccines Aged Out No longer eligible based on patient's age to complete this topic Procedures Procedure Name Priority Date/Time Associated Diagnosis Comments HIV 1/2 ANTIGEN/ANTIBODY, FOURTH GENERATION W/RFL Routine 07/27/2023 8:25 AM EST Routine screening for STI (sexually transmitted infection) MAMMOGRAM GENERIC Routine 04/12/2021 8:3 0 AM EDT HPV MRNA E6/E7 Routine 01/27/2021 9:48 AM EDT THINPREP PAP Routine 01/27/2021 9:48 AM EDT from Last 3 Months or Most Recently Relevant to Health Maintenance Results * HIV-1/2 Antigen and Antibodies, Fourth Generation, with Reflexes (07/27/2023 8:25 AM EST) HIV AB/AG Nonreactive Nonreactive [facility] Comment:HIV-1 p24 Ag and/or HIV-1/HIV-2 Ab not detected.A test result that is nonreactive does not exclude thepossibility of exposure to or infection with HIV-1 and/orHIV-2. Nonreactive results in this assay for individualswith prior exposure to HIV-1 and/or HIV-2 may be due toantigen and antibody levels that are below the limit ofdetection of this assay.The [employer] HIV Ag/Ab Combo assay result andsupplemental assay results should be interpreted inconjunction with the patient's clinical presentation,history and other laboratory results. If the results areinconsistent with clinical evidence, additional testing issuggested to confirm the result. Blood Venous blood specimen / Unknown 07/27/2023 8:25 AM EST 07/27/2023 2:09 PM EST us Roberta Khan MD LAB BLOOD ORDERABLES Final Re sult [facility] [address] [place] [address] [phone] * Mammography Report 1 (04/12/2021 8:30 AM EDT) Anatomical Region Laterality Modality Breast Bilateral Mammography 04/12/2021 8:30 AM EDT Narrative 04/13/2021 8:53 AM EDT Refer to the Notes tab for result details [facility] Procedure: Mammography Report 1 Procedure Note ProviderRadha MD - 10/09/2022 Refer to the Notes tab for result details [facility] Procedure: Mammography Report 1 Aline Healy MD IMG BI PROCEDURES Final Resul t * THINPREP PAP (01/27/2021 9:48 AM EDT) Clinical Information: None given [facility] COMMENT SEE COMMENT [facility] Comment: EXPLANATORY NOTE: The Pap is a screening test for cervical cancer. It is not a diagnostic test and is subject to false negative and false positive results. It is most reliable when a satisfactory sample, regularly obtained, is submitted with relevant clinical findings and history, and when the Pap result is evaluated along with historic and current clinical information. [employer] : SEE COMMENT [facility] Comment: NSS, CT(ASCP) CT screening location: [place] [address] Interpretation/R esult: Negative for intraepithelial lesion or malignancy. [facility] LMP: NONE [facility]IV[facility] Prev. BX: NONE [facility] Prev. PAP: NONE [facility]IV[facility] SOURCE: None given [facility] Statement Of Adequacy: SEE COMMENT [facility] Comment: Satisfactory for evaluation. Endocervical/transformation zone component absent. Age and/or menstrual status not provided 01/27/2021 9:48 AM EDT Aline Healy MD LAB PATHOLOGY ORDERABLES Zo l Result [facility] [address] * HPV mRNA E6/E7 (01/27/2021 9:48 AM EDT) HPV nRNA E6/E7 Not Detected Not Detected [facility] Comment: Methodology: Inverter And Clipper-Mediated Amplification This assay detects E6/E7 viral messenger RNA (mRNA) from 14 high-risk HPV types (16,18,31,33,35,39,45,51,52,56,58,59,66,68). The analytical performance characteristics of this assay have been determined by [employer]. The modifications have not been cleared or approved by the FDA. This assay has been validated pursuant to the CLIA regulations and is used for clinical purposes. For additional information, please refer to http://education.[employer]faq/VVM909b8 (This link if provided for information/ educational purposes only.) 01/27/2021 9:48 AM EDT us Aline Healy MD LAB BLOOD ORDERABLES Final Re sult [facility] [address] from Last 3 Months or Most Recently Relevant to Health [place] [address] [facility] < [address] [id number] [place] [address] Care Teams Glass Ribbon Machine Operator Relationship Specialty Start Date End Date Aline Healy MD [address] [facility] [place] [address] PCP - General Family Medicine 07/31/13
--- OUTSIDE RECORDS SUMMARY | 2025-04-18 11:43 | XMS_ITS | Encounter Summary ---
Author Organization [employer] Address [address] [facility] [address] [place] [address] Care Team Providers Care Percolator Operator Name Role Phone Aline Healy MD Primary Care Provider [phone] Reason for Visit * Reason Comments Med Refill Encounter Details Date Type Department Care Team ([facility] st Contact Info) Description 12/12/2023 Refill [facility] MED & PEDS [address] [place] [address] Aline Healy MD [address] [place] [address] Chronic bilateral low back pain without sciatica [...] 1:30 PM EST Office Visit [facility] OPTOMET[facility] [address] [place] [address] Elieser, Vera, OD [address] [place] [address] documented as of this encounter Visit Diagnoses Diagnosis Chronic bilateral low back pain without sciatica documented in this encounter Additional Health Concerns Assessment Noted Time PHQ-9 Depression Total Score: 17 024 8:57 AM EST documented as of this encounter Care Teams Percolator Operator Relationship Specialty Start Date End Date Aline Healy MD [address] [place] [address] PCP - General Family Medicine 07/31/13 documented as of this encounter
[2025-04-18 14:13] LABS: MANUAL DIFF FLAG NO
[2025-04-18 14:24] LABS: Appearance Urine Clear; Glucose Urine UA Negative (Negative); PH 7.5 (5.0-9.0); Specific Gravity - Urine 1.025 (1.005-1.025); UMIC TRIGGER UACC YES
[2025-04-18 14:30] LABS: Hematocrit 32.0 % (37.0-47.0); Hemoglobin 10.1 g/dl (12.0-16.0); Imm Gran Abs Auto 0.02 X10*3/uL (0.00-0.03); Imm Gran Pct Auto 0.3 % (0.0-0.4); Lymphocytes Absolute Auto 1.7 X10*3/uL (1.2-4.9); Mean Corpuscular HGB Conc 31.6 g/dl (31.0-35.0); Mean Corpuscular Hemoglobin 23.7 pg (27.0-33.0); Mean Corpuscular Volume 75.1 fL (80.0-98.0); NRBC Abs Auto 0.000 X10*3/uL (0.0-0.012); NRBC Pct Auto 0.0 /100WBC (0.0-0.2); Platelet Count 391 X10*3/uL (160-400); Red Blood Count 4.26 X10*6/uL (4.20-5.50); White Blood Count 5.9 X10*3/uL (4.8-10.8)
[2025-04-18 15:07] LABS: Alanine Aminotransferase 27 U/L (0-31); Albumin Level 4.5 g/dL (3.5-5.0); Alkaline Phosphatase 110 U/L (39-117); Anion Gap 9 (12-20); Aspartate Amino Transferase 43 U/L (5-31); Blood Urea Nitrogen 12 mg/dL (9-16); Calcium 8.7 mg/dL (8.4-10.2); Carbon Dioxide 27 mmol/L (22-29); Chloride 106 mmol/L (96-108); Cholesterol 179 mg/dL (<200); Estimated Glomerular Filt Rate > 60; HDL Cholesterol 76 mg/dL (>40); Iron 60 mcg/dL (30-160); Percent Iron Saturation 13 % (15-50); Potassium 4.0 mmol/L (3.3-5.1); Sodium 138 mmol/L (135-145); Total Iron Binding Capacity 454 mcg/dL (228-428); Total Protein 7.2 g/dL (6.5-8.0); Triglycerides 68 mg/dL (<150); Unsaturated Iron Binding 394 ug/dL
[2025-04-18 15:25] LABS: Folate 13.3 ng/mL (> or = 4.0); Vitamin B12 1383 pg/mL (200-900)
[2025-04-19 03:59] LABS: Syphilis Screen Nonreactive (Nonreactive)
[2025-04-19 04:26] LABS: HIV Num 1 0.05 S/CO (0.00-0.99)
[2025-04-22 21:06] LABS: HCV Log PCR <1.18 NOT DETECTED Log IU/mL (NOT DETECTED); HepC Viral Load <15 NOT DETECTED IU/mL (NOT DETECTED)
== END 2025-04-18 10:44 | disposition home or self-care (01) ==
LOC: HO.CHCLDS 10:43
PROVIDERS: Visit Provider Pediatrics
DX: F32.A Depression, unspecified (principal); Z11.3 Encounter for screening for infections with a predominantly sexual mode of transmission; F17.200 Nicotine dependence, unspecified, uncomplicated; Z71.3 Dietary counseling and surveillance; Z71.82 Exercise counseling; Z98.84 Bariatric surgery status; Z13.6 Encounter for screening for cardiovascular disorders; Z11.4 Encounter for screening for human immunodeficiency virus [HIV]
CPT/HCPCS: 36415; 80048; 80053; 80061; 81001; 82306; 82607; 82746; 83540; 84207; 84425; 84443; 85025; 86780; 87389; 87522

== ENCOUNTER 2025-05-13 16:03 | Outpatient (REF) | payer OTHER, SELFPAY ==
--- OUTSIDE RECORDS SUMMARY | 2025-05-13 20:06 | XMS_ITS | Encounter Summary ---
Author Organization [employer] Address [address] [place] [address] 7 [place] [address] Care Team Providers Care Host And Hostess Name Role Phone Aline Healy MD Primary Care Provider [phone] Reason for Visit * Reason Onset Date Comments Prior Authorization 12/19/2023 Encounter Details Date Type Department Care Team ([facility] Contact Info) Description 12/19/[address] [facility] CHC MED & PEDS [address] [place] [address] Aline Healy MD [address] [place] [address] Prior Authorization Social History Tobacco Use Types [...] brand name requires PA however pt did pickling tank operator medication on 12.21.23 * Telephone Encounter - [...] 01/01/2024 10:12 AM EDT TC X1 to [facility] regarding request below. LVM to return call. * Telephone Encounter - Erica Menon LPN - 12/19/2023 11:03 AM EDT Please review message below . Need documentation . ? Tc from [facility] with [employer] stating that medication Lunesta 3 MG tablet needs a PA . * Telephone Encounter - Fermin Sharp - 12/19/2023 9:36 AM EDT Tc from [place] with [employer] stating that medication Lunesta 3 MG tablet needs a PA . documented in this encounter Plan of Treatment Not on file documented as of this encounter Visit Diagnoses Not on filedocumented in this encounter Additional Health Concerns Assessment Noted Time PHQ-9 Depression Total Score: 17 024 8:57 AM EST documented as of this encounter Care Teams Host And Hostess Relationship Specialty Start Date End Date Aline Healy MD [address] [place] [address] PCP - General Family Medicine 07/31/13 documented as of this encounter
--- OUTSIDE RECORDS SUMMARY | 2025-05-13 20:06 | XMS_ITS | Encounter Summary ---
Author Organization [employer] Address [address] [facility] 7[address] [place] [address] Care Team Providers Care Neighborhood Planner Name Role Phone Aline Healy MD Primary Care Provider [phone] Reason for Visit * Reason Onset Date Comments Results 07/27/2023 Encounter Details Date Type Department Care Team ([facility] st Contact Info) Description 07/27/2023 Telephone [facility] CHC MED & PEDS [address] [place], [place] [id number] Aline Healy MD [address] [place] [address] Results Social History Tobacco Use Types Packs/Day [...] is returning call. Please contact pt at [phone] documented in this encounter Plan of Treatment Not on file documented as of this encounter Visit Diagnoses Not on filedocumented in this encounter Additional Health Concerns Assessment Noted Time PHQ-9 Depression Total Score: 18 023 11:26 AM EST documented as of this encounter Care Teams Neighborhood Planner Relationship Specialty Start Date End Date Aline Healy MD [address] [place] [id number] PCP - General Family Medicine 07/31/13 documented as of this encounter
--- OUTSIDE RECORDS SUMMARY | 2025-05-13 20:06 | XMS_ITS | Encounter Summary ---
Author Organization [employer] Address [address] [facility] 7[address] [place] [address] Care Team Providers Care Space Systems Operations Manager Name Role Phone Aline Healy MD Primary Care Provider [phone] Reason for Visit * Reason Onset Date Comments Med Refill 12/12/2023 Encounter Details Date Type Department Care Team ([facility] Contact Info) Description 12/12/2023 Refill [facility] MED & PEDS [address] [facility] [place] [address] Aline Healy MD [address] [place] [address] Social History Tobacco Use Types Packs/Day Years [...] as of this encounter Plan of Treatment Not on file documented as of this encounter Visit Diagnoses Not on filedocumented in this encounter Additional Health Concerns Assessment Noted Time PHQ-9 Depression Total Score: 17 024 8:57 AM EST documented as of this encounter Care Teams Space Systems Operations Manager Relationship Specialty Start Date End Date Aline Healy MD [address] [place] [address] PCP - General Family Medicine 07/31/13 documented as of this encounter
--- OUTSIDE RECORDS SUMMARY | 2025-05-13 20:06 | XMS_ITS | Encounter Summary ---
Author Organization [employer] Address [address] [facility] [address] [place] [address] Care Team Providers Care Single Wire Saw Operator Name Role Phone Aline Healy MD Primary Care Provider [phone] Reason for Visit * Reason Comments Med Refill Encounter Details Date Type Department Care Team ([facility] st Contact Info) Description 12/12/[address] [facility] CHC MED & PEDS [address] [place] [address] Aline Healy MD [address] [place] [address] Chronic bilateral low back pain without sciatica [...] documented as of this encounter Care Teams Single Wire Saw Operator Relationship Specialty Start Date End Date Aline Healy MD [address] [place] [address] PCP - General Family Medicine 07/31/13 documented as of this encounter
--- OUTSIDE RECORDS SUMMARY | 2025-05-13 20:06 | XMS_ITS | Encounter Summary ---
Author Organization [employer] Address [address] [facility] [address] [place] [address] Care Team Providers Care Shuttle Spotter Name Role Phone Aline Healy MD Primary Care Provider [phone] Reason for Visit * Reason Onset Date Comments Nurse Triage 12/19/2023 Encounter Details Date Type Department Care Team ([facility] st Contact Info) Description 12/19/2023 Telephone [facility] CHC MED & PEDS [address] [place] [address] Aline Healy MD [address] [place] [address] Nurse Triage Social History Tobacco Use Types [...] returned to [facility] at [facility] . Per Sharon patient was seen today by her in office. Pt is concerned Eun De Leon was prescriber at [facility]. Pt was supposed to get [...] accepted this outcome Please contact sharon from [facility] at [phone] documented in this encounter Plan of Treatment Not on file documented as of this encounter Visit Diagnoses Not on filedocumented in this encounter Additional Health Concerns Assessment Noted Time PHQ-9 Depression Total Score: 17 024 8:57 AM EST documented as of this encounter Care Teams Shuttle Spotter Relationship Specialty Start Date End Date Aline Healy MD [address] [place] [address] PCP - General Family Medicine 07/31/13 documented as of this encounter
--- OUTSIDE RECORDS SUMMARY | 2025-05-13 20:06 | XMS_ITS | Encounter Summary ---
Author Organization [employer] Address [address] [facility] 7t [place] [address] Care Team Providers Care Cushion Spring Assembler Name Role Phone Aline Healy MD Primary Care Provider [phone] Encounter Details Date Type Department Care Team ([facility] st Contact Info) Description 12/21/2023 Orders Only [facility] CHC MED & PEDS [address] [place], [place] [phone] Lukasz Oneal MD [address] [place], [place] [phone] Mood disorder of depressed type (Primary Dx); [...] documented as of this encounter Care Teams Cushion Spring Assembler Relationship Specialty Start Date End Date Aline Healy MD [address] [place] [address] PCP - General Family Medicine 07/31/13 documented as of this encounter
--- OUTSIDE RECORDS SUMMARY | 2025-05-13 20:07 | XMS_ITS | Clinical Summary ---
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 30 tablet 3 04/18/20 25 Active ergocalcifero l (Vitamin D2) 1.25 MG (06620 UT) capsule Take 1 capsule (1.25 mg) by mouth 1 (one) time per week. 15 capsule 04/25/20 25 Active ferrous sulfate (Fe Tabs) 325 (65 Fe) MG EC tablet Take 2 tabs orally with breakfast and orange juice 60 tablet 5 04/25/20 25 Active gabapentin (Neurontin) 100 MG capsule TAKE 1 CAPSULE BY MOUTH TWICE DAILY NEEDED FOR PAIN 60 capsule 04/30/20 25 Active Fiber Select Gummies chewable tablet Chew 1 tablet Once per day. 12/28/19 25 Active docusate sodium (Colace) 100 MG capsule Take 1 capsule by mouth 2 times daily. 04/15/20 25 Active Lunesta 3 MG tablet Take 1 tablet (3 mg) by mouth at bedtime. Take immediately before bedtime 28 tablet 12/13/19 24 025 Discontinued eszopiclone (Lunesta) 3 MG tabletIndicat ions:Mood disorder [...] 60 tablet 3 09/28/19 25 025 Discontinued gabapentin (Neurontin) 100 MG capsule 1 capsule twice a day prn pain 60 capsule 04/03/20 25 025 Discontinued Active Problems Problem Noted Date Diagnosed Date [...] organization. Date Type Department Care Team Description 04/30/2025 Refill [facility] [address] [place] [address] Aline Healy MD 04/25/2025 Results Follow-Up [facility] [address] [place] [address] Aline Healy MD Basic Metabolic Panel, Fasting, CBC auto differential, Iron And Total Iron Binding Capacity, Additional followed-up results: 12 04/25/2025 Orders Only [facility] [address] [place] [address] Aline Healy MD 04/22/2025 2:30 PM EDT Office Visit [facility] [address] [place] [address] Elieser, Vera, OD Normal eye exam (Primary Dx); Presbyopia 04/22/2025 Travel 04/18/2025 10:00 AM EDT Office Visit [facility] [address] [place] [address] Aline Healy MD Mood disorder of depressed type (Primary Dx); Dietary counseling; Exercise counseling; Tobacco dependence syndrome; Routine screening for STI (sexually transmitted infection); H/O gastric bypass; Screening for colon cancer; Encounter for immunization; Chronic bilateral low back pain without sciatica; Chronic hepatitis C without hepatic coma (HCC) 04/18/2025 Travel 04/15/2025 Telephone [facility] [address] [place] [address] Aline Healy MD Chart Prep 04/11/2025 Patient Outreach [facility] [address] [place] [address] Aline Healy MD Care Coordination (CHW outreach for SDOH housing search-referral completed ) 04/10/2025 Patient Outreach [facility] [address] [place] [address] Aline Healy MD Pre-visit Planning (SDOH screening positive and Tobacco screening negative) 04/03/2025 1:00 PM EDT Office Visit [facility] [address] [place] [address] Aline Healy MD Breast cancer screening by mammogram (Primary Dx); Lumbar back pain; Lumbar radiculopathy; Chronic bilateral low back pain without sciatica; Mood disorder of depressed type 04/03/2025 Travel 04/03/2025 Telephone [facility] [address] [place] [address] Aline Healy MD Nurse Triage from Last 3 Months [...] 04/18/2025 10:07 AM EDT Plan of Treatment Health Maintenance Due Date Last Done Comments CT Colonography 1978 Colonoscopy 1978 FIT 1978 Sigmoidoscopy 1978 Hepatitis A Vaccines (1 [...] 04/18/2026 04/18/2025 Family Planning (PISQ) 04/18/2026 04/18/2025 FOBT 05/01/2026 05/01/2025 Tobacco Screening 05/07/2026 05/07/2025 Zoster Vaccines (1 of 2) 2028 Colorectal Cancer Screening 05/01/2028 FIT DNA/Cologuard 05/01/2028 05/01/2025 RSV Patients and Patients Aged 60 years or older (1 - 1-dose 75+ series) 2053 HIV Screening Completed 04/18/2025, 07/17, 02/02/2021, Additional history exists Influenza Vaccine Completed 04/18/2025, [...] Procedure Name Priority Date/Time Associated Diagnosis Comments LAB COLOGUARD COLON CANCER SCREEN Routine 05/01/2025 10:30 AM EDT Screening for colon cancer SYPHILIS SCREEN Routine 04/18/2025 10:46 AM EDT Dietary counseling Exercise counseling Mood disorder of depressed type Tobacco dependence syndrome Routine screening for STI (sexually transmitted infection) H/O gastric bypass HIV 1/2 ANTIGEN/ANTIBODY, FOURTH GENERATION W/RFL Routine 04/18/2025 10:46 AM EDT Dietary counseling Exercise counseling Mood disorder of depressed type Tobacco dependence syndrome Routine screening for STI (sexually transmitted infection) H/O gastric bypass HEPATITIS C VIRAL RNA, QUANTITATIVE, REAL-TIME PCR Routine 04/18/2025 10:46 AM EDT Dietary counseling Exercise counseling Mood disorder of depressed type Tobacco dependence syndrome Routine screening for STI (sexually transmitted infection) H/O gastric bypass LIPID PANEL, STANDARD Routine 04/18/2025 10:46 AM EDT Dietary counseling Exercise counseling Mood disorder of depressed type Tobacco dependence syndrome Routine screening for STI (sexually transmitted infection) H/O gastric bypass URINALYSIS, COMPLETE, WITH REFLEX TO CULTURE Routine 04/18/2025 10:46 AM EDT Dietary counseling Exercise counseling Mood disorder of depressed type Tobacco dependence syndrome Routine screening for STI (sexually transmitted infection) H/O gastric bypass VITAMIN B6 Routine 04/18/2025 10:46 AM EDT Dietary counseling Exercise counseling Mood disorder of depressed type Tobacco dependence syndrome Routine screening for STI (sexually transmitted infection) H/O gastric bypass VITAMIN B1 Routine 04/18/2025 10:46 AM EDT Dietary counseling Exercise counseling Mood disorder of depressed type Tobacco dependence syndrome Routine screening for STI (sexually transmitted infection) H/O gastric bypass VITAMIN D,25-OH,TOTAL,IA Routine 04/18/2025 10:46 AM EDT Dietary counseling Exercise counseling Mood disorder of depressed type Tobacco dependence syndrome Routine screening for STI (sexually transmitted infection) H/O gastric bypass VITAMIN B12/FOLATE, SERUM PANEL Routine 04/18/2025 10:46 AM EDT Dietary counseling Exercise counseling Mood disorder of depressed type Tobacco dependence syndrome Routine screening for STI (sexually transmitted infection) H/O gastric bypass TSH W/REFLEX TO FT4 Routine 04/18/2025 1 0:46 AM EDT Dietary counseling Exercise counseling Mood disorder of depressed type Tobacco dependence syndrome Routine screening for STI (sexually transmitted infection) H/O gastric bypass COMPREHENSIVE METABOLIC PANEL Routine 04/18/2025 10:46 AM EDT Dietary counseling Exercise counseling Mood disorder of depressed type Tobacco dependence syndrome Routine screening for STI (sexually transmitted infection) H/O gastric bypass IRON AND TOTAL IRON BINDING CAPACITY Routine 04/18/2025 10:46 AM EDT Dietary counseling Exercise counseling Mood disorder of depressed type Tobacco dependence syndrome Routine screening for STI (sexually transmitted infection) H/O gastric bypass CBC WITH AUTO DIFFERENTIAL Routine 04/18/2025 10:46 AM EDT Dietary counseling Exercise counseling Mood disorder of depressed type Tobacco dependence syndrome Routine screening for STI (sexually transmitted infection) H/O gastric bypass BASIC METABOLIC PANEL, FASTING Routine 04/18/2025 10:46 AM EDT Dietary counseling Exercise counseling Mood disorder of depressed type Tobacco dependence syndrome Routine screening for STI (sexually transmitted infection) H/O gastric bypass MAMMOGRAM GENERIC Routine 04/12/2021 8:3 0 AM EDT HPV MRNA E6/E7 Routine 01/27/2021 9:48 AM EDT THINPREP PAP Routine 01/27/2021 9:48 AM EDT from Last 3 Months or Most Recently Relevant to Health Maintenance Results * Cologuard?? colon cancer screening (05/01/2025 10:30 AM EDT) Cologuard Result Negative Negative 05/08/20 4:18 AM EDT [facility] (CLIA #:[id number]) Comment: The Cologuard (TM) test was performed on this specimen. NEGATIVE TEST RESULT. A negative Cologuard result indicates a low likelihood that a colorectal cancer (CRC) or advanced adenoma (adenomatous polyps with more advanced pre-malignant features) is present. The chance that a person with a negative Cologuard test has a colorectal cancer is less than 1 in 1500 (negative predictive value >99.9%) or has an advanced adenoma is less than 5.3% (negative predictive value 94.7%). These data are based on a prospective cross-sectional study of 10,000 individuals at average risk for colorectal cancer who were screened with both Cologuard and colonoscopy. (Lala Antonio et al, N Engl J Med 2014;370(14):1286- 1297) The normal value (reference range) for this assay is negative. COLOGUARD RE-SCREENING RECOMMENDATION: Periodic colorectal cancer screening is an important part of preventive healthcare for asymptomatic individuals at average risk for colorectal cancer. Following a negative Cologuard result, the [place] [employer] Society and U.S. Multi-Society Task Force screening guidelines recommend a Cologuard re-screening interval of 3 years. References: [place] [employer] Guideline for Colorectal Cancer Screening: https://www.cancer.org/cancer/ojewv-gugcar-zdozvz/yjapbueca-pncyhbrry-uvffeoo/ac s-rec ommendations.html.; Jeffrey GOLD, Hollis CR, Wolf VillanuevaK, Colorectal Cancer Screening: Recommendations for Physicians and Patients from the U.S. Multi-Society Task Force on Colorectal Cancer Screening , Am J Gastroenterology 2017; 112:7574-0865. TEST DESCRIPTION: Composite algorithmic analysis of stool DNA-biomarkers with hemoglobin immunoassay. Quantitative values of individual biomarkers are not reportable and are not associated with individual biomarker result reference ranges. Cologuard is intended for colorectal cancer screening of adults of either sex, 45 years or older, who are at average-risk for colorectal cancer (CRC). Cologuard has been approved for use by the U.S. FDA. The performance of Cologuard was established in a cross sectional study of average-risk adults aged 50-84. Cologuard performance in patients ages 45 to 49 years was estimated by sub-group analysis of near-age groups. Colonoscopies performed for a positive result may find as the most clinically significant lesion: colorectal cancer [4.0%], advanced adenoma (including sessile serrated polyps greater than or equal to 1cm diameter) [20%] or non- advanced adenoma [31%]; or no colorectal neoplasia [45%]. These estimates are derived from a prospective cross-sectional screening study of 10,000 individuals at average risk for colorectal cancer who were screened with both Cologuard and colonoscopy. (Lala Laura al, N Engl J Med 2014;370(14):1891-0331.) Cologuard may produce a false negative or false positive result (no colorectal cancer or precancerous polyp present at colonoscopy follow up). A negative Cologuard test result does not guarantee the absence of CRC or advanced adenoma (pre-cancer). The current Cologuard screening interval is every 3 years. ([place] [employer] and U.S. Multi-Society Task Force). Cologuard performance data in a 10,000 patient pivotal study using colonoscopy as the reference method can be accessed at the following location: www.[employer]/results. Additional description of the Cologuard test process, warnings and precautions can be found at www.[employer].com. Stool specimen (specimen) 05/01/2025 10:30 AM EDT 05/02/2025 1:06 PM EDT us Aline Healy MD LAB MOLECULAR DIAGNOSTICS ORD ERABLES Final Result [facility] (CLIA #:[id number]) [address] [place] [address], * Syphilis Screen (04/18/2025 10:46 AM EDT) Syphilis Screen Nonreactive Nonreactive [facility] Blood 04/18/2025 10:4 6 AM EDT 04/18/2025 2:14 PM EDT us Aline Healy MD LAB BLOOD ORDERABLES Final Re sult Performing Organization Address City/[facility]/ZIP Co de Phone Number [facility] [address] [place] [phone] * Basic Metabolic Panel, Fasting (04/18/2025 10:46 AM EDT) Glucose Fasting 77 60 - 99 mg/dL [facility] Blood Venous blood specimen / Unknown 04/18/2025 10:46 AM EDT 04/18/2025 2:14 PM EDT Aline Healy MD LAB BLOOD ORDERABLES Final Re sult Performing Organization Address [facility] Co de Phone Number [facility] [address] [place] [phone] * (ABNORMAL) Vitamin D, 25-Hydroxy, Total, Immunoassay (04/18/2025 10:46 AM EDT) Vitamin D 25-OH Total 12.1(L) >30 ng/mL [facility] Comment: Health Based Reference Values*< 20 ng/mL Skgregspu42-33 ng/mL Insufficient> 30 ng/mL Sufficient*Aldo WOODRUFF. N Engl J Med. 2007;357:266-280There is no well-established upper level of normal vitamin Dlevels. Some laboratories use 50 ng/mL as an upper limit ofnormal. However, toxicity is patient-dependent and may occurat any level. Careful correlation with the patient'spresentation is necessary and, if there is concern forvitamin D toxicity, treatment should be consideredirrespective of the serum level.Care must be taken in interpreting Vitamin D results fromdifferent laboratories and methodologies. Published datademonstrated that results from patients undergoinghemodialysis may show a negative bias when tested withvarious automated 25-OH vitamin D assays when compared toLC-MS/MS.When testing samples from patients whose predominant form ofVitamin D is Vitamin D2, such as patients receiving VitaminD2 supplementation, results that are subtherapeutic shouldbe confirmed with another method such as LC-MS/MS. Blood Venous blood specimen / Unknown 04/18/2025 10:46 AM EDT 04/18/2025 2:14 PM EDT Aline Healy MD LAB BLOOD ORDERABLES Final Re sult Performing Organization Address [facility]/ZIP Co de Phone Number [facility] [address] [place] [phone] * (ABNORMAL) Vitamin B12/Folate, Serum Panel (04/18/2025 10:46 AM EDT) Vitamin B12 1,383(H) 200 - 900 pg/mL [facility] Comment:NORMAL 200-900 PG/ML INDETERMINATE 160-199 PG/ML DEFICIENT < 160 PG/ML Folate 13.3 > or = 4.0 ng/mL [facility] Comment:Reference Values:> o r = 4.0 ng/mL< 4.0 ng/mL suggests folate deficiency Methotrexate, aminopterin and folinic acid(leucovorin) are chemotherapeutic agents whose molecularstructures are similar to folate; therefore, the Architectfolate assay cannot be used for patients using these drugs. Blood Venous blood specimen / Unknown 04/18/2025 10:46 AM EDT 04/18/2025 2:14 PM EDT us Aline Healy MD LAB BLOOD ORDERABLES Final Re sult Performing Organization Address [facility]/ZIP Co de Phone Number [facility] [address] [place], [place] [phone] * (ABNORMAL) Urinalysis, Complete, with Reflex to Culture (04/18/2025 10:46 AM EDT) Color Urine Yellow [facility] Appearance Urine Clear [facility] PH 7.5 5.0 - 9.0 [facility] Glucose Urine UA Negative Negative mg/dL [facility] Urine Blood Negative Negative [facility] Specific [place] - Urine 1.025 1.005 - 1.025 [facility] Urine Protein Trace Neg-Trace mg/dL [facility] Urine Ketones Negative Negative mg/dL [facility] Nitrite Urine Negative Negative [facility] Leukocyte Esterase Urine Trace(A) Negative [facility] RBC Urine 0-2 0 - 2 /HPF [facility] Urine WBC 0-5 0 - 5 /HPF [facility] Urine Squamous Epithelial Cell 6-10 0 - 2 /HPF [facility] Urine Bacteria None Seen None Seen [facility] Hyaline Casts, Urine 0-2 0 - 2 /LPF [facility] Urine 04/18/2025 10:4 6 AM EDT 04/18/2025 2:13 PM EDT Narrative [facility] - 04/18/2025 2:28 PM EDT Urine, Clean Catch Aline Healy MD LAB URINE ORDERABLES Final Re sult Performing Organization Address [facility] Co de Phone Number [facility] [address] [place] [phone] * TSH W/Reflex to FT4 (04/18/2025 10:46 AM EDT) TSH reflex Free T4 0.47 0.32 - 4.0 uIU/mL [facility] Blood Venous blood specimen / Unknown 04/18/2025 10:46 AM EDT 04/18/2025 2:14 PM EDT Aline Healy MD LAB BLOOD ORDERABLES Final Re sult Performing Organization Address [facility]/ZIP Co de Phone Number [facility] [address] [place] [phone] * Hepatitis C Viral RNA, Quantitative, Real-Time PCR (04/18/2025 10:46 AM EDT) Pathologist [facility] [place] Hepatitis C Viral Load <15 NOT DETECTED NOT DETECTED IU/mL [facility] HCV Log PCR <1.18 NOT DETECTED NOT DETECTED Log IU/mL [facility] Comment:For additional infor lawson, please refer tohttp://education.[employer]/faq/MBM37t6(This link is being provided for informational/educational purposes only.)THIS TEST WAS PERFORMED AT:[facility] [place] [phone] DAVIS MD Blood Venous blood specimen / Unknown 04/18/2025 10:46 AM EDT 04/18/2025 2:14 PM EDT Aline Healy MD LAB BLOOD ORDERABLES Final Re sult [facility] [address] [place] [phone] * (ABNORMAL) CBC auto differential (04/18/2025 10:46 AM EDT) Pathologist [facility] [place] White Blood Count 5.9 4.8 - 10.8 X10*3/uL [facility] Red Blood Count 4.26 4.20 - 5.50 X10*6/uL [facility] Hemoglobin 10.1(L) 12.0 - 16.0 g/dl [facility] Hematocrit 32.0(L) 37.0 - 47.0 % [facility] Mean Corpuscular Volume 75.1(L) 80.0 - 98.0 fL [facility] Mean Corpuscular Hemoglobin 23.7(L) 27.0 - 33.0 pg [facility] Mean Corpuscular HGB Conc 31.6 31.0 - 35.0 g/dl [facility] Red Cell Distribution Width 18.8(H) 11.0 - 16.0 % [facility] Platelet Count 391 160 - 400 X10*3/uL [facility] Mean Platelet Volume 9.4 9.4 - 12.3 fL [facility] Neutrophils Percent Auto 55.9 45 - 73 % [facility] Imm Gran Pct Auto 0.3 0.0 - 0.4 % [facility] Lymphocytes Percent Auto 28.0 20 - 40 % [facility] Monocytes Percent Auto 9.7 2 - 11 % [facility] Eosinophils Percent Auto 4.7(H) 0 - 4 % [facility] Basophils Percent Auto 1.4 0 - 2 % [facility] NRBC Pct Auto 0.0 0.0 - 0.2 /100WBC [facility] Neutrophils Absolute Auto 3.3 2.0 - 8.3 x10*3/uL [facility] Imm Gran Abs Auto 0.02 0.00 - 0.03 X10*3/uL [facility] Lymphocytes Absolute Auto 1.7 1.2 - 4.9 X10*3/uL [facility] Monocytes Absolute Auto 0.6 0.1 - 1.2 X10*3/uL [facility] Eosinophils Absolute Auto 0.3 0.0 - 0.4 X10*3/uL [facility] Basophils Absolute Auto 0.1 0.0 - 0.2 X10*3/uL [facility] NRBC Abs Auto 0.000 0.0 - 0.012 X10*3/uL [facility] Blood Venous blood specimen / Unknown 04/18/2025 10:46 AM EDT 04/18/2025 2:10 PM EDT us Aline Healy MD LAB BLOOD ORDERABLES Final Re sult [facility] [address] [place] [phone] * (ABNORMAL) Iron And Total Iron Binding Capacity (04/18/2025 10:46 AM EDT) Iron 60 30 - 160 mcg/dL [facility] Total Iron Binding Capacity 454(H) 228 - 428 mcg/dL [facility] Percent Iron Saturation 13(L) 15 - 50 % [facility] Unsaturated Iron Binding 394 ug/dL [facility] Blood Venous blood specimen / Unknown 04/18/2025 10:46 AM EDT 04/18/2025 2:14 PM EDT Aline Healy MD LAB BLOOD ORDERABLES Final Re sult Performing Organization Address City/[facility]/ZIP Co de Phone Number [facility] [address] [place] [phone] * HIV-1/2 Antigen and Antibodies, Fourth Generation, with Reflexes (04/18/2025 10:46 AM EDT) [facility] HIV AB/AG Nonreactive Nonreactive [facility] Comment:HIV-1 p24 Ag and/or HIV-1/HIV-2 Ab not detected.A test result that is nonreactive does not exclude thepossibility of exposure to or infection with HIV-1 and/orHIV-2. Nonreactive results in this assay for individualswith prior exposure to HIV-1 and/or HIV-2 may be due toantigen and antibody levels that are below the limit ofdetection of this assay.The [employer] HIV Ag/Ab Combo assay result andsupplemental assay results should be interpreted inconjunction with the patient's clinical presentation,history and other laboratory results. If the results areinconsistent with clinical evidence, additional testing issuggested to confirm the result. Blood Venous blood specimen / Unknown 04/18/2025 10:46 AM EDT 04/18/2025 2:14 PM EDT Aline Healy MD LAB BLOOD ORDERABLES Final Re sult Performing Organization Address [facility]/ZIP Co de Phone Number [facility] [address] [place] [phone] * (ABNORMAL) Vitamin B1 (04/18/2025 10:46 AM EDT) Pathologist [facility] [place] Vitamin B1 <6(A) 8 - 30 nmol/L [facility] Comment:Vitamin supplementat ion within 24 hours prior toblood draw may affect the accuracy of the results.This test was developed and its analytical performancecharacteristics have been determined by [facility] [place], [place]. It hasnot been cleared or approved by the U.S. Food and DrugAdministration. This assay has been validated pursuantto the CLIA regulations and is used for clinicalpurposes.THIS TEST WAS PERFORMED AT:[employer] [id number] [place] [address]QEFPMONBONG MCCOY MD,PHD Blood Venous blood specimen / Unknown 04/18/2025 10:46 AM EDT 04/18/2025 2:14 PM EDT Aline Healy MD LAB BLOOD ORDERABLES Final Re sult [facility] [address] [place] [phone] * Vitamin B6 (04/18/2025 10:46 AM EDT) Pathologist [facility] [place] Vitamin B6 5.7 2.1 - 21.7 ng/mL [facility] Comment:Vitamin supplementat ion within 24 hours prior toblood draw may affect the accuracy of the results.This test was developed and its analytical performancecharacteristics have been determined by [facility] [place], [place]. It hasnot been cleared or approved by the U.S. Food and DrugAdministration. This assay has been validated pursuantto the CLIA regulations and is used for clinicalpurposes.THIS TEST WAS PERFORMED AT:[employer] [id number] [place] [address]YSDLRVABONG MCCOY MD,PHD Blood Venous blood specimen / Unknown 04/18/2025 10:46 AM EDT 04/18/2025 2:14 PM EDT Aline Healy MD LAB BLOOD ORDERABLES Final Re sult Performing Organization Address City/[facility]/ZIP Co de Phone Number [facility] [address] [place] [phone] * Lipid Panel, Standard (04/18/2025 10:46 AM EDT) Triglycerides 68 <150 mg/dL [facility] Comment:Desirable Triglyceri de: less than 150 mg/dLBorderline High Triglyceride 150-199 mg/dLHigh Triglyceride: 200-499 mg/dLVery High Triglyceride: greater than or equal to 5OO mg/dL Cholesterol 179 <200 mg/dL [facility] Comment:Desirable Cholestero l: less than 200 mg/dLBorderline High Cholesterol: 200-239 mg/dLHigh Cholesterol: greater than 239 mg/dL LDL Cholesterol Calculated 90 <100 mg/dL [facility] Comment:Desirable LDL: less than 100 mg/dLNear Optimal/Above Optimal LDL: 110- 129 mg/dLBorderline High LDL: 130-159 mg/dLHigh LDL: 160-189 mg/dLVery High LDL: greater than or equal to 190 mg/dL HDL Cholesterol 76 >40 mg/dL [facility] Comment:Desirable HDL: great er than 40 mg/dL Note: This HDL assay may give artificially low results in patients with liver disease. Blood Venous blood specimen / Unknown 04/18/2025 10:46 AM EDT 04/18/2025 2:14 PM EDT Aline Healy MD LAB BLOOD ORDERABLES Final Re sult Performing Organization Address City/[facility]/ZIP Co de Phone Number [facility] [address] [place] [address] [phone] * (ABNORMAL) Comprehensive Metabolic Panel (04/18/2025 10:46 AM EDT) Sodium 138 135 - 145 mmol/L [facility] Potassium 4.0 3.3 - 5.1 mmol/L [facility] Chloride 106 96 - 108 mmol/L [facility] Carbon Dioxide 27 22 - 29 mmol/L [facility] Anion Gap 9(L) 12 - 20 [facility] Urea Nitrogen (BUN) 12 9 - 16 mg/dL [facility] Creatinine, Serum 0.69 0.5 - 1.4 mg/dL [facility] Estimated Glomerular Filt Rate >60 [facility] Comment:Chronic Kidney Disea se: Estimated GFR < 60 mL/min/1.69g6Cdvtys Kidney Disease: Estimated GFR < 15 mL/min/1.73m2 Glucose 77 60 - 115 mg/dL [facility] Calcium 8.7 8.4 - 10.2 mg/dL [facility] Bilirubin, Total 0.7 0.0 - 1.0 mg/dL [facility] Aspartate Amino Transferase 43(H) 5 - 31 U/L [facility] Alanine Aminotransferase 27 0 - 31 U/L [facility] Total Protein 7.2 6.5 - 8.0 g/dL [facility] Albumin Level 4.5 3.5 - 5.0 g/dL [facility] Alkaline Phosphatase 110 39 - 117 U/L [facility] Blood Venous blood specimen / Unknown 04/18/2025 10:46 AM EDT 04/18/2025 2:14 PM EDT us Aline Healy MD LAB BLOOD ORDERABLES Final Re sult [facility] [address] [place] [phone] * Mammography Report 1 (04/12/2021 8:30 AM EDT) Anatomical Region Laterality Modality Breast Bilateral Mammography 04/12/2021 8:30 AM EDT Narrative 04/13/2021 8:53 AM EDT Refer to the Notes tab for result details [facility] Procedure: Mammography Report 1 Procedure Note Provider, MD Radha - 10/09/2022 Refer to the Notes tab [...] along with historic and current clinical information. Cyber Systems Engineer : SEE COMMENT [facility] Comment: NSS, CT(ASCP) CT screening location: [place] [address] Interpretation/R esult: Negative for intraepithelial lesion or malignancy. [facility] LMP: NONE GIVEN [facility] Prev. BX: NONE [facility] Prev. PAP: NONE [facility] SOURCE: None given [facility] Statement Of Adequacy: SEE COMMENT [facility] Comment: Satisfactory for evaluation. Endocervical/transformation zone component absent. Age and/or menstrual status not provided 01/27/2021 9:48 AM EDT Aline Healy MD LAB PATHOLOGY ORDERABLES Zo l Result [facility] [address] * HPV mRNA E6/E7 (01/27/2021 9:48 AM EDT) HPV nRNA E6/E7 Not Detected Not Detected [facility] Comment: Methodology: Gimp Buttonhole Machine Operator-Mediated Amplification This assay detects E6/E7 viral messenger RNA (mRNA) from 14 high-risk HPV types (16,18,31,33,35,39,45,51,52,56,58,59,66,68). The analytical performance characteristics of this assay have been determined by [employer]. The modifications have not been cleared or approved by the FDA. This assay has been validated pursuant to the CLIA regulations and is used for clinical purposes. For additional information, please refer to http://education.MetaCDN.PatientsLikeMe/faq/SXO405c7 (This link if provided for information/ educational purposes only.) 01/27/2021 9:48 AM EDT Aline Healy MD LAB BLOOD ORDERABLES Final Re sult [facility] [address] from Last 3 Months or Most Recently Relevant to Health [place] [address] [facility] ONE CARE < [address] [place] [address] [place] [id number] [place] [address] Care Teams Oil Rig Driller Relationship Specialty Start Date End Date Aline Healy MD [address] [facility] [place] [id number] PCP - General Family Medicine 07/31/13
== END 2025-05-13 16:04 | disposition home or self-care (01) ==
LOC: HO.MAMMO 16:03
PROVIDERS: PCP Pediatrics; Visit Provider Pediatrics
DX: Z12.31 Encounter for screening mammogram for malignant neoplasm of breast (principal)
CPT/HCPCS: 77063; 77067

== ENCOUNTER → 2025-05-13 16:15 | Outpatient (BNV) | payer OTHER, SELFPAY | PROVIDERS: PCP Pediatrics; Visit Provider Internal Medicine | DX: Z12.31 Encounter for screening mammogram for malignant neoplasm of breast (principal) | CPT/HCPCS: 77063; 77067 ==